=== PATIENT | female | born 1955 ===

== ENCOUNTER 2017-10-15 16:01 | Inpatient (IN) | payer MEDICAID ==
[2017-10-15] MEDS ORDERED: Albuterol-Ipratrop 3 mg / 0.5 (3 ml) UD INH STA (16:42)
[2017-10-15] MEDS ORDERED: Sodium Chloride 0.9% 1,000 ML IV STA (16:43)
[2017-10-15] MEDS ORDERED: Acetaminophen 325 MG/10.15 ML ONE (16:52)
--- NOTE | 2017-10-15 16:55 | ED PDOC ---
Syncope/Near Syncope/Dizziness Chief Complaint (Provider): Dizziness/lightheaded/headach and bodyaches History Per: Patient History/Exam Limitations: no limitations Onset/Duration Of Symptoms: Days Current Symptoms Are (Timing): Still Present Activity At Onset Of Symptoms: Change In Head Position Associated Symptoms Preceding Syncopal Episode: Lightheadedness, Vertigo Seizure Or Post-ictal Symptoms: None Fall Associated With With Symptoms: No Additional Complaint(s): This is 62 y/o female, with PMH of HTN, DMII, HLD and asthma comes to the ED c/ o 4 days history of constant dizziness, frontal headache, neck pain and body aches. As per patient, she has been having this kind of dizziness, headaches and room spinning episodes since one year, but it got constant since last 4 days with cough, congestion and body aches. Dizziness gets worse with standing, headachea and neck pain mild to moderate in nature and gets better with tylenol PRN. Patient reports nausea, chills and 1 episode of NBNB vomiting this morning. patient admits palpitations, but denies chest pain, dyspnea, tingling, numbness, abdominal pain or any urinary symptoms. PMD: Dr. Demetri Canas, [facility] PMH: HTN, DMII, HLD and asthma PSH: Breast reduction and 2x c-sections Allg: NKDA Meds: Insulin, Glimepride, lisinopril, Amlodipin, Metoprolol, Gabapentin Hospitalizations: Denies FH: Unknown SH: Denies any alcohol, smoking or illicit drug use - Risk Factors TAD Risk Factors: Pos: Hypertension <Yue Garay - Last Filed: 10/15/17 17:20> <Conrad Bradley - Last Filed: 10/15/17 19:11> Time Seen by Provider: 10/15/17 16:18 Chief Complaint (Nursing): Dizziness/Lightheaded Supervising Attending Note - Supervising Attending Note The Documented history was done by the: Physician Automotive Warranty Administrator The documented physical exam was done by the: Physician Automotive Warranty Administrator The documented procedures were done by the: Physician Automotive Warranty Administrator - Notes: Notes:: Dizziness; cough, congestion, runny nose, body aches <Conrad Bradley - Last Filed: 10/15/17 19:11> Past Medical History Vital Signs: Last Vital Signs Temp 98.7 F 10/15/17 16:10 Pulse 117 H 10/15/17 16:10 Resp 16 10/15/17 16:10 BP 104/59 L 10/15/17 16:10 Pulse Ox 97 10/15/17 16:10 - Medical History Other PMH: HTN, DMII, HLD and asthma - Surgical History Surgical History: - Family History Family History: States: No Known Family Hx - Living Arrangements Living Arrangements: With Family - Social History Current smoker - smoking cessation education provided: No Ex-Smoker (has not smoked in the last 12 months): No Alcohol: None Drugs: Denies <Yue Garay - Last Filed: 10/15/17 17:20> Vital Signs: Last Vital Signs Temp 98.7 F 10/15/17 16:10 Pulse 117 H 10/15/17 16:10 Resp 16 10/15/17 16:10 BP 104/59 L 10/15/17 16:10 Pulse Ox 97 10/15/17 17:20 <Conrad Bradley - Last Filed: 10/15/17 19:11> - Allergies Allergies/Adverse Reactions: Allergies Allergy/AdvReac Type Severity Reaction Status Date / Time No Known Allergies Allergy Verified 10/15/17 16:10 Review of Systems Constitutional: Positive for: Chills. Negative for: Fever, Weakness Eyes: Negative for: Pain, Vision Change, Conjunctivae Inflammation ENT: Positive for: Other (mild Neck pain and headache). Negative for: Ear Pain , Ear Discharge Cardiovascular: Positive for: Palpitations. Negative for: Chest Pain, Orthopnea , Paroxysmal Noc. Dyspnea Respiratory: Positive for: Cough. Negative for: Shortness of Breath, Hemoptysis , Pleuritic Pain Gastrointestinal: Positive for: Nausea, Vomiting. Negative for: Abdominal Pain , Diarrhea Genitourinary Female: Negative for: Dysuria, Frequency, Incontinence Musculoskeletal: Positive for: Neck Pain, Shoulder Pain Neurological: Positive for: Headache. Negative for: Weakness, Numbness, Incoordination, Change in Speech, Altered Mental Status <Yue Garay - Last Filed: 10/15/17 17:20> Physical Exam - Physical Exam Appears: Positive for: No Acute Distress Head Exam: Positive for: ATRAUMATIC, NORMAL INSPECTION, NORMOCEPHALIC Neck: Positive for: Pain On Movement Of Neck (mild with body aches and headache) Cardiovascular/Chest: Positive for: Regular Rate, Rhythm, Chest Non Tender, Tachycardia. Negative for: Edema, JVD Respiratory: Positive for: Crackles. Negative for: Decreased Breath Sounds, Respiratory Distress Gastrointestinal/Abdominal: Positive for: Normal Exam, Bowel Sounds, Soft. Negative for: Tenderness Back: Positive for: Normal Inspection Extremity: Positive for: Normal ROM. Negative for: Pedal Edema Neurologic/Psych: Positive for: Alert, pin inserter regulator II-XII, Oriented. Negative for: Motor/Sensory Deficits, Facial Droop <Yue Garay - Last Filed: 10/15/17 17:20> - Physical Exam Cardiovascular/Chest: Negative for: Edema Respiratory: Positive for: Normal Breath Sounds. Negative for: Wheezing <Conrad Bradley - Last Filed: 10/15/17 19:11> - ECG O2 Sat by Pulse Oximetry: 97 <Yue Garay - Last Filed: 10/15/17 17:20> - Laboratory Results Result Diagrams: 10/15/17 17:20 10/15/17 17:20 Interpretation Of Abn Labs: 44/2.8 - ECG ECG: Positive for: Interpreted By Me, Viewed By Me ECG Rhythm: Positive for: Sinus Tachycardia (mild) Pulse Ox Interpretation: Normal - Radiology X-Ray: Read By Radiologist X-Ray Interpretation: No Acute Disease - CT Scan/US head Other Rad Studies (CT/US): Read By Radiologist Other Rad Interpretation: no acute - Progress ED Course And Treament: 1900: Stable. AAOx3. Feels weakness all over and dizziness still off and on. Will give antivert. Will need admit as kidney function elevated levels. 1909: Stable. Spoke with Dr. Knapp. Will admit tele. <Conrad Bradley - Last Filed: 10/15/17 19:11> Medical Decision Making Medical Decision Making: A/P: 62 y/o female with dizziness, headache, cough and congestion - EKG - Head CT - Pro BNP, Troponin - CBC, CMP, PT, PTT - Influenza A/B - CXR - Albuterol, Reglan, tylenol, IVF <Yue Garay - Last Filed: 10/15/17 17:20> Disposition <Yue Garay - Last Filed: 10/15/17 17:20> - Patient ED Disposition Is Patient to be Admitted: Yes Counseled Patient/Family Regarding: Studies Performed, Diagnosis - Disposition Disposition Time: 19:10 - Pt Status Changed To: Hospital Disposition Of: Observation - POA Present On Arrival: None <Conrad Bradley - Last Filed: 10/15/17 19:11> - Clinical Impression Clinical Impression: Dizziness, Renal insufficiency - Disposition Condition: FAIR
--- NOTE | 2017-10-15 17:36 | RAD ---
HISTORY: Dyspnea. COMPARISON: 04/29/2011 FINDINGS: LUNGS: No active pulmonary disease. PLEURA: No significant pleural effusion identified, no pneumothorax apparent. CARDIOVASCULAR: No radiographic findings to suggest acute or significant cardiovascular disease. OSSEOUS STRUCTURES: No significant abnormalities. VISUALIZED UPPER ABDOMEN: Normal. OTHER FINDINGS: None. IMPRESSION: No active disease. No significant interval change compared to the prior examination(s).
[2017-10-15 17:42] LABS: BASO # 0.1 K/uL (0.0-0.2); BASO % 0.9 % (0.0-2.0); EOS # 0.1 K/uL (0.0-0.7); EOS % 0.8 % (0.0-4.0); HEMOGLOBIN 11.6 g/dL (12.0-16.0); LYMPH # 1.4 K/uL (1.0-4.3); LYMPH % 12.4 % (20.0-40.0); MEAN CELL VOLUME 82.5 fl (81.0-99.0); MEAN CORPUSCULAR HEMOGLOBIN 26.2 pg (27.0-31.0); MEAN CORPUSCULAR HGB CONC 31.8 g/dL (33.0-37.0); MEAN PLATELET VOLUME 9.2 fl (7.2-11.7); MONO # 1.2 K/uL (0.0-0.8); MONO % 10.3 % (0.0-10.0); NEUT # 8.5 K/uL (1.8-7.0); NEUT % 75.6 % (50.0-75.0); RBC 4.42 Mil/uL (3.80-5.20); RED CELL DISTRIBUTION WIDTH 13.8 % (11.5-14.5); WHITE BLOOD COUNT 11.3 K/uL (4.8-10.8)
[2017-10-15 17:44] LABS: ALB/GLOB RATIO 1.3 (1.0-2.1); ALBUMIN 4.4 g/dL (3.5-5.0); ALT/SGPT 53 U/L (9-52); AST/SGOT 58 U/L (14-36); BLOOD UREA NITROGEN 44 mg/dl (7-17); CALCIUM 10.5 mg/dL (8.4-10.2); GFR AFRICAN-AMERICAN 21; GFR NON-AFRICAN AMERICAN 17; INR 1.3 (0.9-1.2); PARTIAL THROMBOPLASTIN TIME 29.8 Seconds (25.6-37.1); PROTHROMBIN TIME 14.1 Seconds (9.8-13.1)
[2017-10-15 18:00] LABS: B-TYPE NATRIURETIC PEPTIDE 193 pg/ml (0-900)
--- NOTE | 2017-10-15 18:00 | CT ---
PROCEDURE: CT HEAD WITHOUT CONTRAST. HISTORY: headache COMPARISON: None available. TECHNIQUE: Axial computed tomography images were obtained through the head/brain without intravenous contrast. Radiation dose: Total exam DLP = 953.63 mGy-cm. This CT exam was performed using one or more of the following dose reduction techniques: Automated exposure control, adjustment of the mA and/or kV according to patient size, and/or use of iterative reconstruction technique. FINDINGS: HEMORRHAGE: No intracranial hemorrhage. BRAIN: No mass effect or edema. The dewitt-white matter differentiation appears intact. Enlargement of the pituitary gland measuring approximately 13 mm. VENTRICLES: No hydrocephalus. CALVARIUM: Unremarkable. PARANASAL SINUSES: Unremarkable as visualized. No significant inflammatory changes. MASTOID AIR CELLS: Unremarkable as visualized. No inflammatory changes. OTHER FINDINGS: None. IMPRESSION: Pituitary gland appears enlarged approximately 13 mm. MRI utilizing pituitary protocol recommended for further evaluation.
[2017-10-15] MEDS ORDERED: Albuterol HFA 90 mcg/actuation (8 g) INH PRN (22:36)
[2017-10-15] MEDS: Insulin Regular 100 units/ml SC SCH (23:12)
[2017-10-16 05:28] LABS: HEMOGLOBIN 10.9 g/dL (12.0-16.0); MEAN CELL VOLUME 81.9 fl (81.0-99.0); MEAN CORPUSCULAR HEMOGLOBIN 26.4 pg (27.0-31.0); MEAN CORPUSCULAR HGB CONC 32.2 g/dL (33.0-37.0); RBC 4.14 Mil/uL (3.80-5.20); RED CELL DISTRIBUTION WIDTH 14.2 % (11.5-14.5); WHITE BLOOD COUNT 10.1 K/uL (4.8-10.8)
[2017-10-16] MEDS ORDERED: Pneumococcal 23-Valent Vaccine IM ONE (06:00)
[2017-10-16 06:02] LABS: ALB/GLOB RATIO 1.2 (1.0-2.1); ALBUMIN 3.9 g/dL (3.5-5.0)
[2017-10-16 06:18] LABS: T4 5.86 ug/dl (5.5-11.0)
[2017-10-16 06:33] LABS: T3 0.661 nmol/L (1.49-2.60)
[2017-10-16] MEDS: Insulin Regular 100 units/ml SC SCH ×4 (08:00→22:03)
[2017-10-16] MEDS: Insulin Detemir 100 Units/ml Inj SC SCH (09:40)
[2017-10-16] MEDS: Enoxaparin 30 mg Syringe SC SCH (10:00)
--- NOTE | 2017-10-16 10:40 | CP.PCM.CON ---
History of Present Illness - History of Present Illness History of Present Illness: I was asked to see patient by Dr Knapp. Patient is a 62 year old female with PMH HTN, DM who is known to me from the office practice. patient has had previous cardiac work up including echocardiogram and stress test which have been negative for cardiac pathology. Patient has noted dizziness and lightheadedness which was worse yesterday. She presented for near syncopal event. Review of Systems - Constitutional Constitutional: absent: As Per HPI, Anorexia, Chills, Daytime Sleepiness, Excessive Sweating, Fatigue, Fever, Frequent Falls, Headache, Increased Appetite , Lethargy, Malaise, Night Sweats, Snoring, Sleep Apnea, Weight Gain, Weight Loss, Weakness, Other - EENT Eyes: absent: As Per HPI, Blind Spots, Blurred Vision, Change in Vision, Decreased Night Vision, Diplopia, Discharge, Dry Eye, Exophthalmos, Floaters, Irritation, Itchy Eyes, Loss of Peripheral Vision, Pain, Photophobia, Requires Corrective Lenses, Sees Flashes, Spots in Vision, Tunnel Vision, Other Visual Disturbances, Loss of Vision, Other Ears: absent: As Per HPI, Decreased Hearing, Ear Discharge, Ear Pain, Tinnitus, Abnormal Hearing, Disequilibrium, Dizziness, Other Nose/Mouth/Throat: absent: As Per HPI, Epistaxis, Nasal Congestion, Nasal Discharge, Nasal Obstruction, Nasal Trauma, Nose Pain, Post Nasal Drip, Sinus Pain, Sinus Pressure, Bleeding Gums, Change in Voice, Dental Pain, Dry Mouth, Dysphagia, Halitosis, Hoarsness, Lip Swelling, Mouth Lesions, Mouth Pain, Odynophagia, Sore Throat, Throat Swelling, Tongue Swelling, Facial Pain, Neck Pain, Neck Mass, Other - Cardiovascular Cardiovascular: absent: As Per HPI, Acrocyanosis, Chest Pain, Chest Pain at Rest , Chest Pain with Activity, Claudication, Diaphoresis, Dyspnea, Dyspnea on Exertion, Edema, Irregular Heart Rhythm, Pain Radiating to Arm/Neck/Jaw, Leg Edema, Leg Ulcers, Lightheadedness, Orthopnea, Palpitations, Paroxysmal Nocturnal Dyspnea, Pedal Edema, Radiating Pain, Rapid Heart Rate, Slow Heart Rate, Syncope, Other - Respiratory Respiratory: absent: As Per HPI, Cough, Dyspnea, Hemoptysis, Dyspnea on Exertion , Wheezing, Snoring, Stridor, Pain on Inspiration, Chest Congestion, Excessive Mucous Production, Change in Mucous Color, Pain with Coughing, Other - Gastrointestinal Gastrointestinal: absent: As Per HPI, Abdominal Pain, Belching, Bloating, Change in Bowel Habits, Change in Stool Character, Coffee Ground Emesis, Constipation, Cramping, Diarrhea, Dyspepsia, Dysphagia, Early Satiety, Excessive Flatus, Fecal Incontinence, Heartburn, Hematemesis, Hematochezia, Loose Stools, Melena, Nausea, Odynophagia, Temesmus, Vomiting, Other - Genitourinary Genitourinary: absent: As Per HPI, Change in Urinary Stream, Difficulty Urinating, Dysuria, Flank Pain, Hematuria, Pyuria, Nocturia, Urinary Incontinence, Urinary Frequency, Urinary Hesitance, Urinary Urgency, Voiding Freq/Small Amts, Freq UTI, Hx Renal/Bladder Calculi, Hx /Renal Surgery, Bladder Distension, Other - Musculoskeletal Musculoskeletal: absent: As Per HPI, Abnormal Gait, Arthralgias, Atrophy, Back Pain, Deformity, Joint Swelling, Limited Range of Motion, Loss of Height, Muscle Cramps, Muscle Weakness, Myalgias, Neck Pain, Numbness, Radiating Pain into Limb, Stiffness, Tingling, Other - Integumentary Integumentary: absent: As Per HPI, Acne, Alopecia, Bleeding Lesions, Change in Hair, Change in Nails, Change in Pigmentation, Changing Lesions, Dry Skin, Erythema, Furuncle, Hirsutism, Lesions, New Lesions, Non-Healing Lesions, Photosensitivity, Pruritus, Rash, Skin Pain, Skin Ulcer, Sores, Striae, Swelling , Unusual Bruising, Wounds, Jaundice, Other - Neurological Neurological: absent: As Per HPI, Abnormal Gait, Abnormal Hearing, Abnormal Movements, Abnormal Speech, Behavioral Changes, Burning Sensations, Confusion, Convulsions, Disequilibrium, Dizziness, Numbness, Focal Weakness, Frequent Falls , Headaches, Lack of Coordination, Loss of Vision, Memory Loss, Paresthesias, Radicular Pain, Restless Legs, Sensory Deficit, Syncope, Tingling, Tremor, Vertigo, Weakness, Other Visual Disturbances, Other - Psychiatric Psychiatric: absent: As Per HPI, Abnormal Sleep Pattern, Anhedonia, Anxiety, Auditory Hallucinations, Behavioral Changes, Change in Appetite, Change in Libido, Confusion, Depression, Difficulty Concentrating, Hallucinations, Homicidal Ideation, Hopelessness, Irritability, Memory Loss, Mood Swings, Panic Attacks, Paranoia, Suicidal Ideation, Visual Hallucinations, Tactile Hallucinations, Other - Endocrine Endocrine: absent: As Per HPI, Change in Body Appearance, Change in Libido, Cold Intolorance, Deepening of Voice, Excessive Sweating, Fatigue, Flushing, Heat Intolorance, Increase in Ring/Shoe/Hat Size, Palpitations, Polydipsia, Polyphagia, Polyuria, Other - Hematologic/Lymphatic Hematologic: absent: As Per HPI, Easy Bleeding, Easy Bruising, Lymphadenopathy, Other Past Patient History - Past Medical History & Family History Past Medical History?: Yes - Past Social History Smoking Status: Never Smoked - CARDIAC Hx Cardiac Disorders: Yes Hx Hypercholesterolemia: Yes Hx Hypertension: Yes - PULMONARY Hx Asthma: Yes - ENDOCRINE/METABOLIC Hx Diabetes Mellitus Type 2: Yes - MUSCULOSKELETAL/RHEUMATOLOGICAL Hx Falls: Yes - PSYCHIATRIC Hx Substance Use: No - SURGICAL HISTORY Hx Section: Yes Other/Comment: breast reduction - ANESTHESIA Hx Anesthesia: Yes Hx Anesthesia Reactions: No Meds Allergies/Adverse Reactions: Allergies Allergy/AdvReac Type Severity Reaction Status Date / Time No Known Allergies Allergy Verified 10/15/17 16:10 - Medications Medications: Current Medications Albuterol (Ventolin Hfa 90 Mcg/Actuation (8 G)) 2 puff INH Q6 PRN PRN Reason: Shortness of Breath Amlodipine Besylate (Norvasc) 5 mg PO DAILY [facility] Last Admin: 10/16/17 09:42 Dose: 5 mg Aspirin (Aspirin Chewable) 81 mg PO DAILY [facility] Last Admin: 10/16/17 09:39 Dose: 81 mg Atorvastatin Calcium (Lipitor) 40 mg PO DAILY [facility] Last Admin: 10/16/17 09:41 Dose: 40 mg Clotrimazole (Lotrimin 1% Cream) 1 applic TOP BID [facility] Last Admin: 10/16/17 09:42 Dose: 1 applic Enoxaparin Sodium (Lovenox) 30 mg SC DAILY [facility] PRN Reason: Protocol Fenofibrate (Tricor) 48 mg PO HS [facility] Fluticasone Propionate (Flonase) 2 spr JULISSA DAILY [facility] Last Admin: 10/16/17 09:39 Dose: 2 spr Gabapentin (Neurontin) 300 mg PO TID [facility] Last Admin: 10/16/17 09:42 Dose: 300 mg Hydrochlorothiazide (Hydrodiuril) 25 mg PO DAILY [facility] Last Admin: 10/16/17 09:40 Dose: 25 mg Insulin Detemir (Levemir) 25 units SC DAILY [facility] Last Admin: 10/16/17 09:40 Dose: 25 unit Insulin Human Regular (Humulin R) 0 units SC ACCU-CHECK [facility] PRN Reason: Protocol Last Admin: 10/16/17 08:00 Dose: Not Given Lisinopril (Zestril) 20 mg PO DAILY [facility] Loratadine (Claritin) 10 mg PO DAILY [facility] Last Admin: 10/16/17 09:39 Dose: 10 mg Metoprolol Tartrate (Lopressor) 100 mg PO BID [facility] Last Admin: 10/16/17 09:41 Dose: 100 mg Physical Exam - Constitutional Appears: Non-toxic - Head Exam Head Exam: NORMAL INSPECTION - Eye Exam Eye Exam: Normal appearance - ENT Exam ENT Exam: Mucous Membranes Moist - Neck Exam Neck exam: Positive for: Full Rom - Respiratory Exam Respiratory Exam: NORMAL BREATHING PATTERN - Cardiovascular Exam Cardiovascular Exam: REGULAR RHYTHM - GI/Abdominal Exam GI & Abdominal Exam: Normal Bowel Sounds - Rectal Exam Rectal Exam: Deferred - Extremities Exam Extremities exam: Negative for: pedal edema - Back Exam Back exam: NORMAL INSPECTION - Neurological Exam Neurological exam: Alert, Oriented x3 - Psychiatric Exam Psychiatric exam: Normal Affect - Skin Skin Exam: Normal Color Results - Vital Signs Recent Vital Signs: Last Vital Signs Temp 98.0 F 10/16/17 07:50 Pulse 87 10/16/17 09:42 Resp 20 10/16/17 07:50 BP 125/73 10/16/17 09:42 Pulse Ox 95 10/16/17 07:50 - Labs Result Diagrams: 10/16/17 05:00 10/16/17 05:00 Labs: Laboratory Results - last 24 hr 10/15/17 10/15/17 10/15/17 16:38 17:20 17:20 WBC 11.3 H RBC 4.42 Hgb 11.6 L Hct 36.5 MCV 82.5 MCH 26.2 L MCHC 31.8 L RDW 13.8 Plt Count 341 MPV 9.2 Neut % (Auto) 75.6 H Lymph % (Auto) 12.4 L [place] % (Auto) 10.3 H Eos % (Auto) 0.8 Baso % (Auto) 0.9 Neut # 8.5 H Lymph # 1.4 [place] # 1.2 H Eos # 0.1 Baso # 0.1 PT INR APTT Sodium 142 Potassium 4.0 Chloride 102 Carbon Dioxide 27 Anion Gap 17 BUN 44 H Creatinine 2.8 H Est GFR ( Amer) 21 Est GFR (Non-Af Amer) 17 POC Glucose (mg/dL) 147 H Random Glucose 133 H Calcium 10.5 H Total Bilirubin 1.2 AST 58 H ALT 53 H Alkaline Phosphatase 66 Troponin I < 0.0120 NT-Pro-B Natriuret Pep 193 Total Protein 7.9 Albumin 4.4 Globulin 3.5 Albumin/Globulin Ratio 1.3 Triglycerides Cholesterol LDL Cholesterol Direct HDL Cholesterol Vitamin B12 Thyroxine (T4) Total T3 TSH 3rd Generation Influenza Typ A,B (EIA) 10/15/17 10/15/17 10/15/17 17:20 17:20 22:25 WBC RBC Hgb Hct MCV MCH MCHC RDW Plt Count MPV Neut % (Auto) Lymph % (Auto) [place] % (Auto) Eos % (Auto) Baso % (Auto) Neut # Lymph # [place] # Eos # Baso # PT 14.1 H INR 1.3 H APTT 29.8 Sodium Potassium Chloride Carbon Dioxide Anion Gap BUN Creatinine Est GFR ( Amer) Est GFR (Non-Af Amer) POC Glucose (mg/dL) 119 H Random Glucose Calcium Total Bilirubin AST ALT Alkaline Phosphatase Troponin I NT-Pro-B Natriuret Pep Total Protein Albumin Globulin Albumin/Globulin Ratio Triglycerides Cholesterol LDL Cholesterol Direct HDL Cholesterol Vitamin B12 Thyroxine (T4) Total T3 TSH 3rd Generation Influenza Typ A,B (EIA) Negative for flu a/b 10/16/17 10/16/17 10/16/17 05:00 05:00 05:32 WBC 10.1 RBC 4.14 Hgb 10.9 L Hct 33.9 L MCV 81.9 MCH 26.4 L MCHC 32.2 L RDW 14.2 Plt Count 301 MPV Neut % (Auto) Lymph % (Auto) [place] % (Auto) Eos % (Auto) Baso % (Auto) Neut # Lymph # [place] # Eos # Baso # PT INR APTT Sodium 142 Potassium 3.5 L Chloride 104 Carbon Dioxide 26 Anion Gap 16 BUN 42 H Creatinine 2.8 H Est GFR ( Amer) 21 Est GFR (Non-Af Amer) 17 POC Glucose (mg/dL) 68 Random Glucose 67 Calcium 10.0 Total Bilirubin 0.9 AST 53 H ALT 56 H Alkaline Phosphatase 61 Troponin I NT-Pro-B Natriuret Pep Total Protein 7.2 Albumin 3.9 Globulin 3.3 Albumin/Globulin Ratio 1.2 Triglycerides 150 H Cholesterol 139 LDL Cholesterol Direct 69 HDL Cholesterol 30 Vitamin B12 360 Thyroxine (T4) 5.86 Total T3 0.661 L TSH 3rd Generation 1.47 Influenza Typ A,B (EIA) 10/16/17 05:57 WBC RBC Hgb Hct MCV MCH MCHC RDW Plt Count MPV Neut % (Auto) Lymph % (Auto) [place] % (Auto) Eos % (Auto) Baso % (Auto) Neut # Lymph # [place] # Eos # Baso # PT INR APTT Sodium Potassium Chloride Carbon Dioxide Anion Gap BUN Creatinine Est GFR ( Amer) Est GFR (Non-Af Amer) POC Glucose (mg/dL) 99 Random Glucose Calcium Total Bilirubin AST ALT Alkaline Phosphatase Troponin I NT-Pro-B Natriuret Pep Total Protein Albumin Globulin Albumin/Globulin Ratio Triglycerides Cholesterol LDL Cholesterol Direct HDL Cholesterol Vitamin B12 Thyroxine (T4) Total T3 TSH 3rd Generation Influenza Typ A,B (EIA) - EKG Data EKG Interpreted by: Myself Assessment & Plan (1) Near syncope Assessment and Plan: cristy noncardiac cause of syncope. Patient has no events on telemetry. neuro work up in progress. stable cardiac status. Status: Acute (2) HTN (hypertension) Assessment and Plan: monitor blood pressure Status: Acute (3) Diabetes mellitus Assessment and Plan: follow blood sugar Status: Acute
--- NOTE | 2017-10-16 10:40 | CARD ---
APPROVED REPORT EKG Measurement Heart [id number] ID [id number] <Conclusion> Sinus tachycardia Otherwise normal ECG
--- NOTE | 2017-10-16 12:32 | CP.PCM.HP ---
<Jazz Rodriguez - Last Filed: 10/16/17 15:25> History of Present Illness - History of Present Illness History of Present Illness: 62 yr old F presented to ED with complaint of worsening dizziness and 1 episode of non-bilious vomiting. PMHx includes HTN, IDDM type 2 (dx at age 56), Chronic Kidney Disease stage 4 and moderate-severe seasonal allergies. Patient reports she has been experiencing intermittent episodes of dizziness for 1 yr. Yesterday her dizziness became severe, she denies syncope, experienced nausea and 1 episode of vomiting which she describes as "thick yellow saliva", she could not tolerate anything by mouth yesterday. Her dizziness is worsened by getting up fast from laying in supine position or standing up fast when she is sitting down. Nothing alleviates her dizziness. She has associated symptom of body aches. Denies chest pain, SOB, weakness, swelling of extremities, syncope, changes in vision or blood in urine or stool. Designated emergency contact: daughter: Le Flores [phone], does not have advance directive PMD: Dr. Canas, [place] Specialists: Dr. Murcia- cardiology; see network support administrator yearly PMHx: HTN, IDDM type 2 (dx at age 56), Chronic Kidney Disease stage 4, moderate- severe seasonal allergies SurgHx; x 2; bilateral breast reduction () FMHx: mother had breast cancer and from an [place] at 82 rs old, father unknown, siblings healthy SocHx: denies tobacco, Etoh or drugs, live alone Medications: Albuterol HFA 2 spray INH Q6 PRN for SOB, Amlodipine 5 mg PO QD, Lisinopril/HCTZ 25mg-20mg PO QD, Metoprolol Tartrate 100mg PO BID, ASA 81 mg PO QD, Atorvastatin 40 mg PO QHS, Fenofibrate 54mg PO QHS, Fluticasone propionate 50mcg -2 sprays each nostril QD, Claritin 10 mg PO QD, Gabapentin 300mg PO TID, Glimepiride 2mg PO BID, Insulin Glargine 25 units SC QD Present on Admission - Present on Admission Any Indicators Present on Admission: No History of DVT/PE: No History of Uncontrolled Diabetes: No Urinary Catheter: No Decubitus Ulcer Present: No Review of Systems - Review of Systems All systems: reviewed and no additional remarkable complaints except (except for what is mentioned in the HPI) - Constitutional Constitutional: absent: Chills, Weakness - EENT Eyes: absent: Blurred Vision, Change in Vision Ears: Disequilibrium, Dizziness Nose/Mouth/Throat: absent: Nasal Congestion, Nasal Discharge - Cardiovascular Cardiovascular: absent: Chest Pain, Dyspnea - Respiratory Respiratory: absent: Cough, Hemoptysis - Gastrointestinal Gastrointestinal: Nausea, Vomiting. absent: Abdominal Pain - Genitourinary Genitourinary: absent: Difficulty Urinating, Dysuria, Hematuria - Musculoskeletal Musculoskeletal: Myalgias. absent: Numbness - Integumentary Integumentary: absent: Rash - Neurological Neurological: absent: Convulsions - Endocrine Endocrine: absent: Polydipsia, Polyphagia, Polyuria - Hematologic/Lymphatic Hematologic: absent: Easy Bleeding, Easy Bruising Past Patient History - Past Medical History & Family History Past Medical History?: Yes - Past Social History Smoking Status: Never Smoked - CARDIAC Hx Cardiac Disorders: Yes Hx Hypercholesterolemia: Yes Hx Hypertension: Yes - PULMONARY Hx Asthma: Yes - ENDOCRINE/METABOLIC Hx Diabetes Mellitus Type 2: Yes - MUSCULOSKELETAL/RHEUMATOLOGICAL Hx Falls: Yes - PSYCHIATRIC Hx Substance Use: No - SURGICAL HISTORY Hx Section: Yes Other/Comment: breast reduction - ANESTHESIA Hx Anesthesia: Yes Hx Anesthesia Reactions: No Meds Allergies/Adverse Reactions: Allergies Allergy/AdvReac Type Severity Reaction Status Date / Time No Known Allergies Allergy Verified 10/15/17 16:10 Physical Exam - Constitutional Appears: No Acute Distress - Head Exam Head Exam: ATRAUMATIC, NORMOCEPHALIC - Eye Exam Eye Exam: EOMI, PERRL - ENT Exam ENT Exam: Mucous Membranes Moist - Neck Exam Neck exam: Positive for: Full Rom. Negative for: Lymphadenopathy - Respiratory Exam Respiratory Exam: Clear to Auscultation Bilateral, NORMAL BREATHING PATTERN - Cardiovascular Exam Cardiovascular Exam: REGULAR RHYTHM, +S1, +S2 - GI/Abdominal Exam GI & Abdominal Exam: Normal Bowel Sounds, Soft (obese). absent: Tenderness - Extremities Exam Extremities exam: Positive for: full ROM, pedal pulses present. Negative for: pedal edema - Neurological Exam Neurological exam: Alert, CN II-XII Intact, Oriented x3 Additional comments: patient dizzy at rest, worsened when attempted [place]-Hallpike maneuver - Psychiatric Exam Psychiatric exam: Normal Affect, Normal Mood - Skin Skin Exam: Dry, Intact, Warm Results - Vital Signs Recent Vital Signs: Last Vital Signs Temp 98.5 F 10/16/17 11:59 Pulse 71 10/16/17 11:59 Resp 18 10/16/17 11:59 BP 97/60 L 10/16/17 11:59 Pulse Ox 96 10/16/17 11:59 - Labs Result Diagrams: 10/16/17 05:00 10/16/17 05:00 Labs: Laboratory Results - last 24 hr 10/15/17 10/15/17 10/15/17 16:38 17:20 17:20 WBC 11.3 H RBC 4.42 Hgb 11.6 L Hct 36.5 MCV 82.5 MCH 26.2 L MCHC 31.8 L RDW 13.8 Plt Count 341 MPV 9.2 Neut % (Auto) 75.6 H Lymph % (Auto) 12.4 L [place] % (Auto) 10.3 H Eos % (Auto) 0.8 Baso % (Auto) 0.9 Neut # 8.5 H Lymph # 1.4 [place] # 1.2 H Eos # 0.1 Baso # 0.1 PT INR APTT Sodium 142 Potassium 4.0 Chloride 102 Carbon Dioxide 27 Anion Gap 17 BUN 44 H Creatinine 2.8 H Est GFR ( Amer) 21 Est GFR (Non-Af Amer) 17 POC Glucose (mg/dL) 147 H Random Glucose 133 H Calcium 10.5 H Total Bilirubin 1.2 AST 58 H ALT 53 H Alkaline Phosphatase 66 Troponin I < 0.0120 NT-Pro-B Natriuret Pep 193 Total Protein 7.9 Albumin 4.4 Globulin 3.5 Albumin/Globulin Ratio 1.3 Triglycerides Cholesterol LDL Cholesterol Direct HDL Cholesterol Vitamin B12 Thyroxine (T4) Total T3 TSH 3rd Generation Influenza Typ A,B (EIA) 10/15/17 10/15/17 10/15/17 17:20 17:20 22:25 WBC RBC Hgb Hct MCV MCH MCHC RDW Plt Count MPV Neut % (Auto) Lymph % (Auto) [place] % (Auto) Eos % (Auto) Baso % (Auto) Neut # Lymph # [place] # Eos # Baso # PT 14.1 H INR 1.3 H APTT 29.8 Sodium Potassium Chloride Carbon Dioxide Anion Gap BUN Creatinine Est GFR ( Amer) Est GFR (Non-Af Amer) POC Glucose (mg/dL) 119 H Random Glucose Calcium Total Bilirubin AST ALT Alkaline Phosphatase Troponin I NT-Pro-B Natriuret Pep Total Protein Albumin Globulin Albumin/Globulin Ratio Triglycerides Cholesterol LDL Cholesterol Direct HDL Cholesterol Vitamin B12 Thyroxine (T4) Total T3 TSH 3rd Generation Influenza Typ A,B (EIA) Negative for flu a/b 10/16/17 10/16/17 10/16/17 05:00 05:00 05:32 WBC 10.1 RBC 4.14 Hgb 10.9 L Hct 33.9 L MCV 81.9 MCH 26.4 L MCHC 32.2 L RDW 14.2 Plt Count 301 MPV Neut % (Auto) Lymph % (Auto) [place] % (Auto) Eos % (Auto) Baso % (Auto) Neut # Lymph # [place] # Eos # Baso # PT INR APTT Sodium 142 Potassium 3.5 L Chloride 104 Carbon Dioxide 26 Anion Gap 16 BUN 42 H Creatinine 2.8 H Est GFR ( Amer) 21 Est GFR (Non-Af Amer) 17 POC Glucose (mg/dL) 68 Random Glucose 67 Calcium 10.0 Total Bilirubin 0.9 AST 53 H ALT 56 H Alkaline Phosphatase 61 Troponin I NT-Pro-B Natriuret Pep Total Protein 7.2 Albumin 3.9 Globulin 3.3 Albumin/Globulin Ratio 1.2 Triglycerides 150 H Cholesterol 139 LDL Cholesterol Direct 69 HDL Cholesterol 30 Vitamin B12 360 Thyroxine (T4) 5.86 Total T3 0.661 L TSH 3rd Generation 1.47 Influenza Typ A,B (EIA) 10/16/17 10/16/17 05:57 10:45 WBC RBC Hgb Hct MCV MCH MCHC RDW Plt Count MPV Neut % (Auto) Lymph % (Auto) [place] % (Auto) Eos % (Auto) Baso % (Auto) Neut # Lymph # [place] # Eos # Baso # PT INR APTT Sodium Potassium Chloride Carbon Dioxide Anion Gap BUN Creatinine Est GFR ( Amer) Est GFR (Non-Af Amer) POC Glucose (mg/dL) 99 138 H Random Glucose Calcium Total Bilirubin AST ALT Alkaline Phosphatase Troponin I NT-Pro-B Natriuret Pep Total Protein Albumin Globulin Albumin/Globulin Ratio Triglycerides Cholesterol LDL Cholesterol Direct HDL Cholesterol Vitamin B12 Thyroxine (T4) Total T3 TSH 3rd Generation Influenza Typ A,B (EIA) Assessment & Plan - Assessment and Plan (Free Text) Assessment: 62 yr old F admitted for worsening dizziness and 1 episode of non-bilious vomiting. PMHx includes HTN, IDDM type 2 (dx at age 56), Chronic Kidney Disease stage 4 and moderate-severe seasonal allergies. Patient seen and examined at bedside with attending-Dr. Knapp, telemetry reviewed. 1. Dizziness -chronic, intermittent/recurrent, likely secondary to vertigo vs dehydration vs cardiac -CT head: enlarged pituitary 13mm, no brain mass effect or edema -troponin negative, proBNP wnl, B12/TSH/FT4 wnl, influenza A/B negative -admit to telemetry -Neurology consult appreciated: NS IVF 75mL/hr, MRI Brain, MRA head and neck: r/ o posterior circulation stroke or vertebral basilar insufficiency -Cardiology consult appreciated: stable cardiac [place] -f/u MRI, MRA as recommended by neuro 2. IDDM type 2 -chronic, controlled -f/u HbA1c -lipid panel: cholesterol 139, triglycerides 150, LDL 69, HDL 30 -continue with home medications: Glimepiride 2mg PO BID, Insulin Glargine 25 units SC QD, Atorvastatin 40 mg PO QHS, Gabapentin 300mg PO TID, Fenofibrate 54mg PO QHS -hypoglycemia protocol in place 3. Hypertension -chronic, controlled -continue with home medications: Amlodipine 5 mg PO QD, Lisinopril/HCTZ 20mg- 25mg PO QD, Metoprolol Tartrate 100mg PO BID, ASA 81 mg PO QD -monitor BP 4. Chronic Kidney Disease stage 4 -chronic, stable, unknown etiology -Nephrology consult appreciated -avoid nephrotoxic drugs, renal dose mediation 5. Moderate-severe allergies -chronic, controlled -continue home medications: Fluticasone propionate 50mcg -2 sprays each nostril QD, Claritin 10 mg PO QD, Albuterol HFA 2 spray INH Q6 PRN for SOB 6. DVT prophylaxis -Lovenox 30 mg SC QD - Date & Time Date: 10/16/17 Time: 07:20 <Jewel Knapp - Last Filed: 10/21/17 12:41> Results - Vital Signs Recent Vital Signs: Last Vital Signs Temp 99.0 F 10/21/17 07:55 Pulse 71 10/21/17 09:17 Resp 18 10/21/17 07:55 BP 124/73 10/21/17 09:17 Pulse Ox 96 10/21/17 07:55 - Labs Result Diagrams: 10/20/17 04:25 10/20/17 04:25 Labs: Laboratory Results - last 24 hr 10/17/17 10/17/17 10/20/17 10:31 10:50 15:34 POC Glucose (mg/dL) 88 TSH 3rd Generation FSH 3rd Generation Luteinizing Hormone Human Growth Hormone 0.1 Prothrombin Mut Interp see note Prothrombin Gene Mutate see note Prothromb Gene Review see note 10/20/17 10/21/17 10/21/17 21:08 05:34 10:31 POC Glucose (mg/dL) 98 112 H 189 H TSH 3rd Generation FSH 3rd Generation Luteinizing Hormone Human Growth Hormone Prothrombin Mut Interp Prothrombin Gene Mutate Prothromb Gene Review 10/21/17 10:35 POC Glucose (mg/dL) TSH 3rd Generation 1.97 FSH 3rd Generation 8.5 Luteinizing Hormone 1.2 Human Growth Hormone Prothrombin Mut Interp Prothrombin Gene Mutate Prothromb Gene Review Assessment & Plan - Assessment and Plan (Free Text) Assessment: Patient was personally seen and examined by me in rounds with residents. Available labs and diagnostic data reviewed. Case, Patient's condition and management plan discussed with residents in rounds. Agree with resident's progress note. Plan: As ordered.
--- NOTE | 2017-10-16 15:19 | CP.PCM.CON ---
History of Present Illness - History of Present Illness History of Present Illness: Mrs. Aguilar is a 62-year-old woman with a past medical history of HTN, DMII, HLD and asthma, who presented to the ED complaining of dizziness and nausea. She states that she feels that she is seeing double as well. Her dizziness is sometimes described as the room is spinning. When she stands up, she feels "wobbly" and feels like she is unable to walk normally. Review of Systems - Review of Systems All systems: reviewed and no additional remarkable complaints except Past Patient History - Past Medical History & Family History Past Medical History?: Yes - Past Social History Smoking Status: Never Smoked - CARDIAC Hx Cardiac Disorders: Yes Hx Hypercholesterolemia: Yes Hx Hypertension: Yes - PULMONARY Hx Asthma: Yes - ENDOCRINE/METABOLIC Hx Diabetes Mellitus Type 2: Yes - MUSCULOSKELETAL/RHEUMATOLOGICAL Hx Falls: Yes - PSYCHIATRIC Hx Substance Use: No - SURGICAL HISTORY Hx Section: Yes Other/Comment: breast reduction - ANESTHESIA Hx Anesthesia: Yes Hx Anesthesia Reactions: No Meds Allergies/Adverse Reactions: Allergies Allergy/AdvReac Type Severity Reaction Status Date / Time No Known Allergies Allergy Verified 10/15/17 16:10 - Medications Medications: Current Medications Albuterol (Ventolin Hfa 90 Mcg/Actuation (8 G)) 2 puff INH Q6 PRN PRN Reason: Shortness of Breath Amlodipine Besylate (Norvasc) 5 mg PO DAILY [facility] Last Admin: 10/16/17 09:42 Dose: 5 mg Aspirin (Aspirin Chewable) 81 mg PO DAILY [facility] Last Admin: 10/16/17 09:39 Dose: 81 mg Atorvastatin Calcium (Lipitor) 40 mg PO DAILY [facility] Last Admin: 10/16/17 09:41 Dose: 40 mg Clotrimazole (Lotrimin 1% Cream) 1 applic TOP BID [facility] Last Admin: 10/16/17 09:42 Dose: 1 applic Enoxaparin Sodium (Lovenox) 30 mg SC DAILY [facility] PRN Reason: Protocol Last Admin: 10/16/17 10:00 Dose: 30 mg Fenofibrate (Tricor) 48 mg PO HS [facility] Fluticasone Propionate (Flonase) 2 spr JULISSA DAILY [facility] Last Admin: 10/16/17 09:39 Dose: 2 spr Gabapentin (Neurontin) 300 mg PO TID [facility] Last Admin: 10/16/17 12:34 Dose: 300 mg Hydrochlorothiazide (Hydrodiuril) 25 mg PO DAILY [facility] Last Admin: 10/16/17 09:40 Dose: 25 mg Sodium Chloride (Sodium Chloride 0.9%) 1,000 mls @ 75 mls/hr IV .[id number] [facility] Stop: 10/17/17 15:11 Insulin Detemir (Levemir) 25 units SC DAILY [facility] Last Admin: 10/16/17 09:40 Dose: 25 unit Insulin Human Regular (Humulin R) 0 units SC ACCU-CHECK [facility] PRN Reason: Protocol Last Admin: 10/16/17 12:29 Dose: Not Given Lisinopril (Zestril) 20 mg PO DAILY [facility] Last Admin: 10/16/17 09:39 Dose: 20 mg Loratadine (Claritin) 10 mg PO DAILY [facility] Last Admin: 10/16/17 09:39 Dose: 10 mg Metoprolol Tartrate (Lopressor) 100 mg PO BID [facility] Last Admin: 10/16/17 09:41 Dose: 100 mg Physical Exam - Constitutional Appears: Well - Head Exam Head Exam: ATRAUMATIC, NORMAL INSPECTION, NORMOCEPHALIC - Eye Exam Eye Exam: EOMI, Normal appearance, PERRL - ENT Exam ENT Exam: Mucous Membranes Moist, Normal Exam - Neck Exam Neck exam: Positive for: Normal Inspection - Respiratory Exam Respiratory Exam: Clear to Auscultation Bilateral, NORMAL BREATHING PATTERN - Cardiovascular Exam Cardiovascular Exam: REGULAR RHYTHM, +S1, +S2 - GI/Abdominal Exam GI & Abdominal Exam: Normal Bowel Sounds, Soft. absent: Tenderness - Neurological Exam Neurological exam: Abnormal Gait, Alert, CN II-XII Intact, Oriented x3, Reflexes Normal Additional comments: Nystagmus noted on right lateral gaze with fast beat to the right. Results - Vital Signs Recent Vital Signs: Last Vital Signs Temp 98.5 F 10/16/17 11:59 Pulse 71 10/16/17 11:59 Resp 18 10/16/17 11:59 BP 97/60 L 10/16/17 11:59 Pulse Ox 96 10/16/17 11:59 - Labs Result Diagrams: 10/16/17 05:00 10/16/17 05:00 Labs: Laboratory Results - last 24 hr 10/15/17 10/15/17 10/15/17 16:38 17:20 17:20 WBC 11.3 H RBC 4.42 Hgb 11.6 L Hct 36.5 MCV 82.5 MCH 26.2 L MCHC 31.8 L RDW 13.8 Plt Count 341 MPV 9.2 Neut % (Auto) 75.6 H Lymph % (Auto) 12.4 L [place] % (Auto) 10.3 H Eos % (Auto) 0.8 Baso % (Auto) 0.9 Neut # 8.5 H Lymph # 1.4 [place] # 1.2 H Eos # 0.1 Baso # 0.1 PT INR APTT Sodium 142 Potassium 4.0 Chloride 102 Carbon Dioxide 27 Anion Gap 17 BUN 44 H Creatinine 2.8 H Est GFR ( Amer) 21 Est GFR (Non-Af Amer) 17 POC Glucose (mg/dL) 147 H Random Glucose 133 H Calcium 10.5 H Total Bilirubin 1.2 AST 58 H ALT 53 H Alkaline Phosphatase 66 Troponin I < 0.0120 NT-Pro-B Natriuret Pep 193 Total Protein 7.9 Albumin 4.4 Globulin 3.5 Albumin/Globulin Ratio 1.3 Triglycerides Cholesterol LDL Cholesterol Direct HDL Cholesterol Vitamin B12 Thyroxine (T4) Total T3 TSH 3rd Generation Influenza Typ A,B (EIA) 10/15/17 10/15/17 10/15/17 17:20 17:20 22:25 WBC RBC Hgb Hct MCV MCH MCHC RDW Plt Count MPV Neut % (Auto) Lymph % (Auto) [place] % (Auto) Eos % (Auto) Baso % (Auto) Neut # Lymph # [place] # Eos # Baso # PT 14.1 H INR 1.3 H APTT 29.8 Sodium Potassium Chloride Carbon Dioxide Anion Gap BUN Creatinine Est GFR ( Amer) Est GFR (Non-Af Amer) POC Glucose (mg/dL) 119 H Random Glucose Calcium Total Bilirubin AST ALT Alkaline Phosphatase Troponin I NT-Pro-B Natriuret Pep Total Protein Albumin Globulin Albumin/Globulin Ratio Triglycerides Cholesterol LDL Cholesterol Direct HDL Cholesterol Vitamin B12 Thyroxine (T4) Total T3 TSH 3rd Generation Influenza Typ A,B (EIA) Negative for flu a/b 10/16/17 10/16/17 10/16/17 05:00 05:00 05:32 WBC 10.1 RBC 4.14 Hgb 10.9 L Hct 33.9 L MCV 81.9 MCH 26.4 L MCHC 32.2 L RDW 14.2 Plt Count 301 MPV Neut % (Auto) Lymph % (Auto) [place] % (Auto) Eos % (Auto) Baso % (Auto) Neut # Lymph # [place] # Eos # Baso # PT INR APTT Sodium 142 Potassium 3.5 L Chloride 104 Carbon Dioxide 26 Anion Gap 16 BUN 42 H Creatinine 2.8 H Est GFR ( Amer) 21 Est GFR (Non-Af Amer) 17 POC Glucose (mg/dL) 68 Random Glucose 67 Calcium 10.0 Total Bilirubin 0.9 AST 53 H ALT 56 H Alkaline Phosphatase 61 Troponin I NT-Pro-B Natriuret Pep Total Protein 7.2 Albumin 3.9 Globulin 3.3 Albumin/Globulin Ratio 1.2 Triglycerides 150 H Cholesterol 139 LDL Cholesterol Direct 69 HDL Cholesterol 30 Vitamin B12 360 Thyroxine (T4) 5.86 Total T3 0.661 L TSH 3rd Generation 1.47 Influenza Typ A,B (EIA) 10/16/17 10/16/17 05:57 10:45 WBC RBC Hgb Hct MCV MCH MCHC RDW Plt Count MPV Neut % (Auto) Lymph % (Auto) [place] % (Auto) Eos % (Auto) Baso % (Auto) Neut # Lymph # [place] # Eos # Baso # PT INR APTT Sodium Potassium Chloride Carbon Dioxide Anion Gap BUN Creatinine Est GFR ( Amer) Est GFR (Non-Af Amer) POC Glucose (mg/dL) 99 138 H Random Glucose Calcium Total Bilirubin AST ALT Alkaline Phosphatase Troponin I NT-Pro-B Natriuret Pep Total Protein Albumin Globulin Albumin/Globulin Ratio Triglycerides Cholesterol LDL Cholesterol Direct HDL Cholesterol Vitamin B12 Thyroxine (T4) Total T3 TSH 3rd Generation Influenza Typ A,B (EIA) Assessment & Plan (1) Vertigo Assessment and Plan: She states that she feels as though she may "pass out", but did not lose consciousness. She complains of spinning sensation and it appears to be worse with head and eye movement to the left. Likely benign positional vertigo; however, with the complaints of diplopia and gait instability, an MRI of the brain as well as MRA of the head/neck is warranted to rule out a posterior circulation stroke or vertebro-basilar insufficiency. Her renal failure, along with possible dehydration may be contributing. I recommend IVF with NS at 75 mL /hr. Continue aspirin, statin and follow up with nephrology and cardiology. Continue on telemetry. Status: Acute Priority: High
[2017-10-16] MEDS: Sodium Chloride 0.9% 1,000 ML IV SCH (15:27)
--- NOTE | 2017-10-16 17:56 | MRI ---
PROCEDURE: MR Angiography of the neck without contrast HISTORY: vertigo COMPARISON: None available. TECHNIQUE: 3D [id number] angiography of the neck was performed. Rotating maximum intensity projection images of the cervical carotid and vertebral arteries were generated. The origins of the common carotid arteries were not visualized, which is a limitation inherent to the non-contrast time of flight technique. FINDINGS: RIGHT CAROTID ARTERIES: Common Carotid Artery: Normal. Carotid Bifurcation: Normal. Internal Carotid Artery:Normal. External Carotid Artery (proximal branches): Normal. LEFT CAROTID ARTERIES: Common Carotid Artery: Normal. Carotid Bifurcation: Normal. Internal Carotid Artery:Normal. External Carotid Artery (proximal branches): Normal. VERTEBRAL ARTERIES: Right Vertebral Artery: Normal. The right vertebral artery is hypoplastic, an anatomic variant. Left Vertebral Artery: Normal. OTHER FINDINGS: None. IMPRESSION: Normal MR Angiography of the neck.
--- NOTE | 2017-10-16 18:10 | MRI ---
PROCEDURE: Magnetic Resonance Angiography Brain HISTORY: Vertigo COMPARISON: None available. TECHNIQUE: 3D time of flight MR angiography of the intracranial arteries was performed. Rotating maximum intensity projection images were generated. FINDINGS: INTERNAL CAROTID ARTERIES: Normal flow related signal signal. The skull base, petrous, cavernous and supraclinoid segments are bilaterally widely patient. ANTERIOR CEREBRAL ARTERIES: Normal flow related signal. A1 and A2 segments are widely patent. Smaller distal branches unremarkable, as visualized. MIDDLE CEREBRAL ARTERIES: Normal flow related signal. M1 and M2 segments are widely patent. Perisylvian branches grossly symmetric. POSTERIOR CIRCULATION: Basilar Artery: Normal in caliber atelectatic. Distal Vertebral Arteries: Normal. The left vertebral artery is dominant intracranial E, an anatomic variant. Posterior Cerebral Arteries: Normal. There is origin of bilateral posterior cerebral artery, an anatomic variant. Posterior Inferior Cerebellar Arteries: Normal. ANEURYSM/ VASCULAR MALFORMATIONS: None. OTHER FINDINGS: None. IMPRESSION: No evidence of occlusion, stenosis or saccular aneurysm.
--- NOTE | 2017-10-16 18:30 | MRI ---
PROCEDURE: MRI BRAIN WITHOUT CONTRAST HISTORY: Vertigo COMPARISON: Noncontrast head CT from 10/15/2017 TECHNIQUE: Multiplanar, multisequence MR images of the brain were obtained without intravenous contrast enhancement. FINDINGS: HEMORRHAGE: None DWI: No evidence of an acute or early subacute infarction. BRAIN PARENCHYMA: There is a 1.6 x 1.6 x 1.3 cm T2 hyperintense mass in the right side of sella turcica which also demonstrates mild restricted diffusion. There are mild chronic microangiopathic changes. There is no abnormal extra-axial fluid collection. VENTRICLES: There is mild age-related global parenchymal volume loss and proportionate enlargement of the ventricles and cortical sulci. CRANIUM: There is normal bone marrow signal pattern. ORBITS: Grossly unremarkable. PARANASAL SINUSES/MASTOIDS: Predominantly clear VASCULAR SYSTEM: There are normal signal voids in the larger intracranial arteries. OTHER FINDINGS: None. IMPRESSION: 1. Incompletely characterized is a 1.6 x 1.6 x 1.3 cm mass in the sella turcica on right. A dedicated MRI of the brain without and with intravenous contrast would is recommended for definitive evaluation. 2. Mild chronic microangiopathic changes and mild age-related global parenchymal
[2017-10-17] MEDS: Sodium Chloride 0.9% 1,000 ML IV SCH (05:34)
[2017-10-17] MEDS: Insulin Regular 100 units/ml SC SCH ×4 (06:57→23:00)
--- NOTE | 2017-10-17 07:48 | CP.PCM.PN ---
<Jazz Rodriguez - Last Filed: 10/17/17 09:41> Subjective - Date & Time of Evaluation Date of Evaluation: 10/17/17 Time of Evaluation: 07:30 - Subjective Subjective: Patient seen and examined at bedside with attending- Dr. Knapp, telemetry reviewed. Awake, alert, reports dizziness persists but had mild improvement. Denies chest pain, SOB or weakness. Tolerating PO diet and ambulating without difficulty. Objective - Vital Signs/Intake and Output Vital Signs (last 24 hours): Temp Pulse Resp BP Pulse Ox 98.5 F 82 19 125/73 98 10/17/17 05:00 10/17/17 05:00 10/17/17 05:00 10/17/17 05:00 10/17/17 05:00 - Medications Medications: Current Medications Albuterol (Ventolin Hfa 90 Mcg/Actuation (8 G)) 2 puff INH Q6 PRN PRN Reason: Shortness of Breath Amlodipine Besylate (Norvasc) 5 mg PO DAILY [facility] Last Admin: 10/16/17 09:42 Dose: 5 mg Aspirin (Aspirin Chewable) 81 mg PO DAILY [facility] Last Admin: 10/16/17 09:39 Dose: 81 mg Atorvastatin Calcium (Lipitor) 40 mg PO DAILY [facility] Last Admin: 10/16/17 09:41 Dose: 40 mg Clotrimazole (Lotrimin 1% Cream) 1 applic TOP BID [facility] Last Admin: 10/16/17 16:51 Dose: 1 applic Enoxaparin Sodium (Lovenox) 30 mg SC DAILY [facility] PRN Reason: Protocol Last Admin: 10/16/17 10:00 Dose: 30 mg Fenofibrate (Tricor) 48 mg PO HS [facility] Last Admin: 10/16/17 22:02 Dose: 48 mg Fluticasone Propionate (Flonase) 2 spr JULISSA DAILY [facility] Last Admin: 10/16/17 09:39 Dose: 2 spr Gabapentin (Neurontin) 300 mg PO TID [facility] Last Admin: 10/16/17 16:51 Dose: 300 mg Hydrochlorothiazide (Hydrodiuril) 25 mg PO DAILY [facility] Last Admin: 10/16/17 09:40 Dose: 25 mg Sodium Chloride (Sodium Chloride 0.9%) 1,000 mls @ 75 mls/hr IV .[id number] [facility] Stop: 10/17/17 15:11 Last Admin: 10/17/17 05:34 Dose: 75 mls/hr Insulin Detemir (Levemir) 25 units SC DAILY [facility] Last Admin: 10/16/17 09:40 Dose: 25 unit Insulin Human Regular (Humulin R) 0 units SC ACCU-CHECK [facility] PRN Reason: Protocol Last Admin: 10/17/17 06:57 Dose: Not Given Lisinopril (Zestril) 20 mg PO DAILY [facility] Last Admin: 10/16/17 09:39 Dose: 20 mg Loratadine (Claritin) 10 mg PO DAILY [facility] Last Admin: 10/16/17 09:39 Dose: 10 mg Metoprolol Tartrate (Lopressor) 100 mg PO BID [facility] Last Admin: 10/16/17 16:50 Dose: Not Given - Labs Labs: 10/16/17 05:00 10/16/17 05:00 PT 14.1 Seconds (9.8-13.1) H 10/15/17 17:20 INR 1.3 (0.9-1.2) H 10/15/17 17:20 APTT 29.8 Seconds (25.6-37.1) 10/15/17 17:20 - Constitutional Appears: No Acute Distress - Head Exam Head Exam: ATRAUMATIC, NORMOCEPHALIC - Eye Exam Eye Exam: EOMI - ENT Exam ENT Exam: Mucous Membranes Moist - Neck Exam Neck Exam: Full ROM - Respiratory Exam Respiratory Exam: NORMAL BREATHING PATTERN - Cardiovascular Exam Cardiovascular Exam: REGULAR RHYTHM, +S1, +S2 - GI/Abdominal Exam GI & Abdominal Exam: Soft (obese), Normal Bowel Sounds - Extremities Exam Extremities Exam: Full ROM. absent: Pedal Edema - Neurological Exam Neurological Exam: Alert, Awake, CN II-XII Intact - Psychiatric Exam Psychiatric exam: Normal Affect, Normal Mood - Skin Skin Exam: Dry, Normal Color, Warm Assessment and Plan - Assessment and Plan (Free Text) Assessment: 62 yr old F admitted for worsening dizziness and 1 episode of non-bilious vomiting. PMHx includes HTN, IDDM type 2 (dx at age 56), Chronic Kidney Disease stage 4 and moderate-severe seasonal allergies. 1. Dizziness -chronic, intermittent/recurrent, likely secondary to vertigo vs dehydration vs cardiac -CT head: enlarged pituitary 13mm, no brain mass effect or edema -troponin negative, proBNP wnl, B12/TSH/FT4 wnl, influenza A/B negative -Neurology consult appreciated: will follow recommendations -10/16/16 MRI Brain: incompletely characterized 1.6 x 1.6 x 1.3 cm mass in the sella turcica on the right, recommend dedicated MRI of the brain with and without IV contrast -10/16/16 MRA head and neck: no evidence of occlusion, stenosis or saccular aneurysm, normal MR angiography of the neck -Cardiology consult appreciated: stable cardiac [place] 2. IDDM type 2 -chronic, controlled -f/u HbA1c -lipid panel: cholesterol 139, triglycerides 150, LDL 69, HDL 30 -continue with home medications: Glimepiride 2mg PO BID, Insulin Glargine 25 units SC QD, Atorvastatin 40 mg PO QHS, Gabapentin 300mg PO TID, Fenofibrate 54mg PO QHS -hypoglycemia protocol in place 3. Hypertension -chronic, controlled -continue with home medications: Amlodipine 5 mg PO QD, Lisinopril/HCTZ 20mg- 25mg PO QD, Metoprolol Tartrate 100mg PO BID, ASA 81 mg PO QD -monitor BP 4. Chronic Kidney Disease stage 4 -chronic, stable, unknown etiology -Nephrology consult appreciated -avoid nephrotoxic drugs, renal dose mediation 5. Moderate-severe allergies -chronic, controlled -continue home medications: Fluticasone propionate 50mcg -2 sprays each nostril QD, Claritin 10 mg PO QD, Albuterol HFA 2 spray INH Q6 PRN for SOB 6. DVT prophylaxis -Lovenox 30 mg SC QD <Jewel Knapp K - Last Filed: 10/21/17 13:00> Objective - Vital Signs/Intake and Output Vital Signs (last 24 hours): Temp Pulse Resp BP Pulse Ox 99.0 F 71 18 124/73 96 10/21/17 07:55 10/21/17 09:17 10/21/17 07:55 10/21/17 09:17 10/21/17 07:55 - Medications Medications: Current Medications Albuterol (Ventolin Hfa 90 Mcg/Actuation (8 G)) 2 puff INH Q6 PRN PRN Reason: Shortness of Breath Amlodipine Besylate (Norvasc) 5 mg PO DAILY [facility] Last Admin: 10/21/17 09:16 Dose: 5 mg Aspirin (Aspirin Chewable) 81 mg PO DAILY [facility] Last Admin: 10/21/17 09:15 Dose: 81 mg Atorvastatin Calcium (Lipitor) 40 mg PO DAILY [facility] Last Admin: 10/21/17 09:17 Dose: 40 mg Clotrimazole (Lotrimin 1% Cream) 1 applic TOP BID [facility] Last Admin: 10/21/17 09:17 Dose: 1 applic Enoxaparin Sodium (Lovenox) 30 mg SC DAILY [facility] PRN Reason: Protocol Last Admin: 10/21/17 09:16 Dose: 30 mg Fenofibrate (Tricor) 48 mg PO HS [facility] Last Admin: 10/20/17 21:37 Dose: 48 mg Fluticasone Propionate (Flonase) 2 spr JULISSA DAILY [facility] Last Admin: 10/21/17 09:15 Dose: 2 spr Hydrochlorothiazide (Hydrodiuril) 25 mg PO DAILY [facility] Last Admin: 10/21/17 09:16 Dose: 25 mg Ciprofloxacin (Cipro 200mg/100ml D5w) 100 mls @ 100 mls/hr IVPB Q12 [facility] Last Admin: 10/21/17 09:00 Dose: 100 mls/hr Insulin Detemir (Levemir) 25 units SC DAILY [facility] Last Admin: 10/21/17 09:16 Dose: 25 unit Insulin Human Regular (Humulin R) 0 units SC ACCU-CHECK [facility] PRN Reason: Protocol Last Admin: 10/21/17 06:13 Dose: Not Given Lisinopril (Zestril) 20 mg PO DAILY [facility] Last Admin: 10/21/17 09:17 Dose: 20 mg Loratadine (Claritin) 10 mg PO DAILY [facility] Last Admin: 10/21/17 09:15 Dose: 10 mg Metoprolol Tartrate (Lopressor) 100 mg PO BID [facility] Last Admin: 10/21/17 09:17 Dose: 100 mg - Labs Labs: 10/20/17 04:25 10/20/17 04:25 PT 14.1 Seconds (9.8-13.1) H 10/15/17 17:20 INR 1.3 (0.9-1.2) H 10/15/17 17:20 APTT 29.8 Seconds (25.6-37.1) 10/15/17 17:20 Assessment and Plan - Assessment and Plan (Free Text) Assessment: Patient was personally seen and examined by me in rounds with residents. Available labs and diagnostic data reviewed. Case, Patient's condition and management plan discussed with residents in rounds. Agree with resident's progress note. Plan: As ordered.
[2017-10-17] MEDS: Insulin Detemir 100 Units/ml Inj SC SCH (08:42)
[2017-10-17] MEDS: Enoxaparin 30 mg Syringe SC SCH (08:47)
--- NOTE | 2017-10-17 10:15 | CP.PCM.PN ---
Subjective - Date & Time of Evaluation Date of Evaluation: 10/17/17 Time of Evaluation: 10:12 - Subjective Subjective: Ms. Aguilar was seen and examined at the bedside. She is alert, oriented in all spheres. She denies any headache, dizziness, lightheadedness, nausea, or vomiting. She further states of experiencing fine hand tremors this morning when her blood sugar was 59 mg/dl. She was given apple juice and hed hand tremors improved. She is able to answer questions appropriately and follow simple commands. Her MRA of the head and neck are within normal limits. MRI of the brain showed incompletely characterized 1.6 x 1.3 cm mass in the sella turcica on the right. She is requesting to go home today, pending all the results of her test. Objective - Vital Signs/Intake and Output Vital Signs (last 24 hours): Temp Pulse Resp BP Pulse Ox 98.4 F 88 18 120/67 97 10/17/17 08:01 10/17/17 09:00 10/17/17 08:01 10/17/17 08:56 10/17/17 08:01 - Medications Medications: Current Medications Albuterol (Ventolin Hfa 90 Mcg/Actuation (8 G)) 2 puff INH Q6 PRN PRN Reason: Shortness of Breath Amlodipine Besylate (Norvasc) 5 mg PO DAILY [facility] Last Admin: 10/17/17 08:54 Dose: 5 mg Aspirin (Aspirin Chewable) 81 mg PO DAILY [facility] Last Admin: 10/17/17 08:38 Dose: 81 mg Atorvastatin Calcium (Lipitor) 40 mg PO DAILY [facility] Last Admin: 10/17/17 08:45 Dose: 40 mg Clotrimazole (Lotrimin 1% Cream) 1 applic TOP BID [facility] Last Admin: 10/17/17 08:47 Dose: 1 applic Enoxaparin Sodium (Lovenox) 30 mg SC DAILY [facility] PRN Reason: Protocol Last Admin: 10/17/17 08:47 Dose: 30 mg Fenofibrate (Tricor) 48 mg PO HS [facility] Last Admin: 10/16/17 22:02 Dose: 48 mg Fluticasone Propionate (Flonase) 2 spr JULISSA DAILY [facility] Last Admin: 10/17/17 08:39 Dose: 2 spr Gabapentin (Neurontin) 300 mg PO TID [facility] Last Admin: 10/17/17 08:48 Dose: 300 mg Hydrochlorothiazide (Hydrodiuril) 25 mg PO DAILY [facility] Last Admin: 10/17/17 08:41 Dose: 25 mg Sodium Chloride (Sodium Chloride 0.9%) 1,000 mls @ 75 mls/hr IV .[id number] [facility] Stop: 10/17/17 15:11 Last Admin: 10/17/17 05:34 Dose: 75 mls/hr Insulin Detemir (Levemir) 25 units SC DAILY [facility] Last Admin: 10/17/17 08:42 Dose: 25 unit Insulin Human Regular (Humulin R) 0 units SC ACCU-CHECK [facility] PRN Reason: Protocol Last Admin: 10/17/17 06:57 Dose: Not Given Lisinopril (Zestril) 20 mg PO DAILY [facility] Last Admin: 10/17/17 08:56 Dose: 20 mg Loratadine (Claritin) 10 mg PO DAILY [facility] Last Admin: 10/17/17 08:38 Dose: 10 mg Metoprolol Tartrate (Lopressor) 100 mg PO BID [facility] Last Admin: 10/17/17 08:46 Dose: 100 mg - Labs Labs: 10/16/17 05:00 10/16/17 05:00 PT 14.1 Seconds (9.8-13.1) H 10/15/17 17:20 INR 1.3 (0.9-1.2) H 10/15/17 17:20 APTT 29.8 Seconds (25.6-37.1) 10/15/17 17:20 - Constitutional Appears: No Acute Distress - Eye Exam Additional comments: Nystagmus noted on right lateral gaze with fast beat to the right. - Neurological Exam Neurological Exam: Alert, Awake, CN II-XII Intact, Oriented x3 Neuro motor strength exam: Left Upper Extremity: 5, Right Upper Extremity: 5, Left Lower Extremity: 5, Right Lower Extremity: 5 Additional comments: She is able to follow simple commands and sensation is intact. Assessment and Plan (1) Dizziness Assessment & Plan: Case discussed with Dr. Savage, continue all current medical regimen.Recommend the following test, LH, FSH, GH, TSH, T3, T4, vitamin b 12, vitamin D, prothrombin gene analysis, CRP, ESR. Status: Acute
[2017-10-17 10:54] LABS: FSH 8.7 mIU/mL
[2017-10-17 11:08] LABS: T3 0.615 nmol/L (1.49-2.60)
--- NOTE | 2017-10-17 12:31 | CP.PCM.CON ---
History of Present Illness - History of Present Illness History of Present Illness: pt is seen and examined, full consult is dictated # 1. CKD-3 r/o dm nephropathy vs htn nephrosclerosis 2. htn 3. dm 4. r/o pituitary adenoma check hept.b,c juan jose,c3,c4, 24 hr up,cr,c rcl, u/s kidneys Past Patient History - Past Medical History & Family History Past Medical History?: Yes - Past Social History Smoking Status: Never Smoked - CARDIAC Hx Cardiac Disorders: Yes Hx Hypercholesterolemia: Yes Hx Hypertension: Yes - PULMONARY Hx Asthma: Yes - ENDOCRINE/METABOLIC Hx Diabetes Mellitus Type 2: Yes - MUSCULOSKELETAL/RHEUMATOLOGICAL Hx Falls: Yes - PSYCHIATRIC Hx Substance Use: No - SURGICAL HISTORY Hx Section: Yes Other/Comment: breast reduction - ANESTHESIA Hx Anesthesia: Yes Hx Anesthesia Reactions: No Meds Allergies/Adverse Reactions: Allergies Allergy/AdvReac Type Severity Reaction Status Date / Time No Known Allergies Allergy Verified 10/15/17 16:10 - Medications Medications: Current Medications Albuterol (Ventolin Hfa 90 Mcg/Actuation (8 G)) 2 puff INH Q6 PRN PRN Reason: Shortness of Breath Amlodipine Besylate (Norvasc) 5 mg PO DAILY [facility] Last Admin: 10/17/17 08:54 Dose: 5 mg Aspirin (Aspirin Chewable) 81 mg PO DAILY [facility] Last Admin: 10/17/17 08:38 Dose: 81 mg Atorvastatin Calcium (Lipitor) 40 mg PO DAILY [facility] Last Admin: 10/17/17 08:45 Dose: 40 mg Clotrimazole (Lotrimin 1% Cream) 1 applic TOP BID [facility] Last Admin: 10/17/17 08:47 Dose: 1 applic Enoxaparin Sodium (Lovenox) 30 mg SC DAILY [facility] PRN Reason: Protocol Last Admin: 10/17/17 08:47 Dose: 30 mg Fenofibrate (Tricor) 48 mg PO HS [facility] Last Admin: 10/16/17 22:02 Dose: 48 mg Fluticasone Propionate (Flonase) 2 spr JULISSA DAILY [facility] Last Admin: 10/17/17 08:39 Dose: 2 spr Gabapentin (Neurontin) 300 mg PO TID [facility] Last Admin: 10/17/17 12:26 Dose: 300 mg Hydrochlorothiazide (Hydrodiuril) 25 mg PO DAILY [facility] Last Admin: 10/17/17 08:41 Dose: 25 mg Sodium Chloride (Sodium Chloride 0.9%) 1,000 mls @ 75 mls/hr IV .[id number] [facility] Stop: 10/17/17 15:11 Last Admin: 10/17/17 05:34 Dose: 75 mls/hr Insulin Detemir (Levemir) 25 units SC DAILY [facility] Last Admin: 10/17/17 08:42 Dose: 25 unit Insulin Human Regular (Humulin R) 0 units SC ACCU-CHECK [facility] PRN Reason: Protocol Last Admin: 10/17/17 12:24 Dose: 1 u Lisinopril (Zestril) 20 mg PO DAILY [facility] Last Admin: 10/17/17 08:56 Dose: 20 mg Loratadine (Claritin) 10 mg PO DAILY [facility] Last Admin: 10/17/17 08:38 Dose: 10 mg Metoprolol Tartrate (Lopressor) 100 mg PO BID [facility] Last Admin: 10/17/17 08:46 Dose: 100 mg Results - Vital Signs Recent Vital Signs: Last Vital Signs Temp 98.2 F 10/17/17 12:07 Pulse 74 10/17/17 12:07 Resp 18 10/17/17 12:07 BP 109/70 10/17/17 12:07 Pulse Ox 94 L 10/17/17 12:07 - Labs Result Diagrams: 10/16/17 05:00 10/16/17 05:00 Labs: Laboratory Results - last 24 hr 10/16/17 10/16/17 10/17/17 15:35 21:46 04:30 ESR POC Glucose (mg/dL) 95 152 H Hemoglobin A1c 7.9 H Vitamin B12 Total T3 TSH 3rd Generation FSH 3rd Generation Luteinizing Hormone 10/17/17 10/17/17 10/17/17 05:38 06:06 10:04 ESR POC Glucose (mg/dL) 59 L 115 H Hemoglobin A1c Vitamin B12 270 Total T3 0.615 L TSH 3rd Generation 1.35 FSH 3rd Generation 8.7 Luteinizing Hormone 1.5 10/17/17 10/17/17 10:33 11:19 ESR 33 H POC Glucose (mg/dL) 176 H Hemoglobin A1c Vitamin B12 Total T3 TSH 3rd Generation FSH 3rd Generation Luteinizing Hormone
--- NOTE | 2017-10-17 16:31 | US ---
PROCEDURE: Ultrasound of the Kidneys HISTORY: htn,dm,ckd for kidney size COMPARISON: None available. TECHNIQUE: Sonogram of the kidneys. FINDINGS: RIGHT KIDNEY: Measures: 10.4 x 3.4 x 3.5 cm cm. No obstructing calculus, hydronephrosis, or renal cyst identified. LEFT KIDNEY: Measures: 10.3 x 3.6 x 3.8 cm cm. No obstructing calculus, hydronephrosis, or renal cyst identified. OTHER FINDINGS: None. IMPRESSION: No obstructing calculus, hydronephrosis, or renal cyst identified.
[2017-10-17 21:12] LABS: COMPLEMENT C4 37.9 mg/dL (14.0-44.0)
[2017-10-17 21:35] LABS: HEPATITIS B SURFACE AG NEGATIVE (NEGATIVE)
[2017-10-17 21:52] LABS: HEPATITIS C ANTIBODY Negative (NEGATIVE)
[2017-10-18] MEDS: Insulin Regular 100 units/ml SC SCH ×4 (06:17→23:05)
[2017-10-18 07:56] LABS: URINE BACTERIA RARE (<OCC); URINE BILIRUBIN NEGATIVE (NEGATIVE); URINE BLOOD NEGATIVE (NEGATIVE); URINE CLARITY SLIGHTY-CLOUDY (Clear); URINE COLOR YELLOW (YELLOW); URINE GLUCOSE (UA) NEG (Normal); URINE LEUKOCYTE ESTERASE MOD Leu/uL (Negative); URINE NITRATE NEGATIVE (NEGATIVE); URINE PROTEIN NEGATIVE (NEGATIVE); URINE UROBILINOGEN 0.2-1.0 mg/dL (0.2-1.0)
[2017-10-18] MEDS: Enoxaparin 30 mg Syringe SC SCH (09:11)
[2017-10-18] MEDS: Insulin Detemir 100 Units/ml Inj SC SCH (09:13)
--- NOTE | 2017-10-18 14:12 | CP.PCM.PN ---
Subjective - Date & Time of Evaluation Date of Evaluation: 10/18/17 Time of Evaluation: 14:12 - Subjective Subjective: pt is seen and examined, follow up consult is dictated #[id number] Objective - Vital Signs/Intake and Output Vital Signs (last 24 hours): Temp Pulse Resp BP Pulse Ox 97.3 F L 66 18 108/57 L 92 L 10/18/17 13:00 10/18/17 13:00 10/18/17 13:00 10/18/17 13:00 10/18/17 13:00 - Medications Medications: Current Medications Albuterol (Ventolin Hfa 90 Mcg/Actuation (8 G)) 2 puff INH Q6 PRN PRN Reason: Shortness of Breath Amlodipine Besylate (Norvasc) 5 mg PO DAILY [facility] Last Admin: 10/18/17 09:12 Dose: 5 mg Aspirin (Aspirin Chewable) 81 mg PO DAILY [facility] Last Admin: 10/18/17 09:13 Dose: 81 mg Atorvastatin Calcium (Lipitor) 40 mg PO DAILY [facility] Last Admin: 10/18/17 09:11 Dose: 40 mg Clotrimazole (Lotrimin 1% Cream) 1 applic TOP BID [facility] Last Admin: 10/18/17 09:13 Dose: 1 applic Enoxaparin Sodium (Lovenox) 30 mg SC DAILY [facility] PRN Reason: Protocol Last Admin: 10/18/17 09:11 Dose: 30 mg Fenofibrate (Tricor) 48 mg PO HS [facility] Last Admin: 10/17/17 22:05 Dose: 48 mg Fluticasone Propionate (Flonase) 2 spr JULISSA DAILY [facility] Last Admin: 10/18/17 09:13 Dose: 2 spr Gabapentin (Neurontin) 300 mg PO TID [facility] Last Admin: 10/18/17 13:28 Dose: 300 mg Hydrochlorothiazide (Hydrodiuril) 25 mg PO DAILY [facility] Last Admin: 10/18/17 09:12 Dose: 25 mg Insulin Detemir (Levemir) 25 units SC DAILY [facility] Last Admin: 10/18/17 09:13 Dose: 25 unit Insulin Human Regular (Humulin R) 0 units SC ACCU-CHECK [facility] PRN Reason: Protocol Last Admin: 10/18/17 12:00 Dose: 1 u Lisinopril (Zestril) 20 mg PO DAILY [facility] Last Admin: 10/18/17 09:11 Dose: 20 mg Loratadine (Claritin) 10 mg PO DAILY [facility] Last Admin: 10/18/17 09:12 Dose: 10 mg Metoprolol Tartrate (Lopressor) 100 mg PO BID [facility] Last Admin: 10/18/17 09:11 Dose: 100 mg - Labs Labs: 10/16/17 05:00 10/16/17 05:00 PT 14.1 Seconds (9.8-13.1) H 10/15/17 17:20 INR 1.3 (0.9-1.2) H 10/15/17 17:20 APTT 29.8 Seconds (25.6-37.1) 10/15/17 17:20
--- NOTE | 2017-10-18 15:49 | CP.PCM.PN ---
Subjective - Date & Time of Evaluation Date of Evaluation: 10/18/17 Time of Evaluation: 15:46 - Subjective Subjective: Mrs. Aguilar was seen and examined today at bedside with her family in the room. The patient continued to complain of light-headedness, dizziness, vertigo , tremors and shakiness. I discussed with her the results of her imaging and that I did not believe that her symptoms were caused by the MRI abnormality. But, that it could be from the gabapentin and the recent renal insufficiency. We discussed going down on the dose of gabapentin until her kidneys improve. Objective - Vital Signs/Intake and Output Vital Signs (last 24 hours): Temp Pulse Resp BP Pulse Ox 97.3 F L 66 18 108/57 L 92 L 10/18/17 13:00 10/18/17 13:00 10/18/17 13:00 10/18/17 13:00 10/18/17 13:00 - Medications Medications: Current Medications Albuterol (Ventolin Hfa 90 Mcg/Actuation (8 G)) 2 puff INH Q6 PRN PRN Reason: Shortness of Breath Amlodipine Besylate (Norvasc) 5 mg PO DAILY [facility] Last Admin: 10/18/17 09:12 Dose: 5 mg Aspirin (Aspirin Chewable) 81 mg PO DAILY [facility] Last Admin: 10/18/17 09:13 Dose: 81 mg Atorvastatin Calcium (Lipitor) 40 mg PO DAILY [facility] Last Admin: 10/18/17 09:11 Dose: 40 mg Clotrimazole (Lotrimin 1% Cream) 1 applic TOP BID [facility] Last Admin: 10/18/17 09:13 Dose: 1 applic Enoxaparin Sodium (Lovenox) 30 mg SC DAILY [facility] PRN Reason: Protocol Last Admin: 10/18/17 09:11 Dose: 30 mg Fenofibrate (Tricor) 48 mg PO HS [facility] Last Admin: 10/17/17 22:05 Dose: 48 mg Fluticasone Propionate (Flonase) 2 spr JULISSA DAILY [facility] Last Admin: 10/18/17 09:13 Dose: 2 spr Gabapentin (Neurontin) 100 mg PO TID [facility] Hydrochlorothiazide (Hydrodiuril) 25 mg PO DAILY [facility] Last Admin: 10/18/17 09:12 Dose: 25 mg Insulin Detemir (Levemir) 25 units SC DAILY [facility] Last Admin: 10/18/17 09:13 Dose: 25 unit Insulin Human Regular (Humulin R) 0 units SC ACCU-CHECK [facility] PRN Reason: Protocol Last Admin: 10/18/17 12:00 Dose: 1 u Lisinopril (Zestril) 20 mg PO DAILY [facility] Last Admin: 10/18/17 09:11 Dose: 20 mg Loratadine (Claritin) 10 mg PO DAILY [facility] Last Admin: 10/18/17 09:12 Dose: 10 mg Metoprolol Tartrate (Lopressor) 100 mg PO BID [facility] Last Admin: 10/18/17 09:11 Dose: 100 mg - Labs Labs: 10/16/17 05:00 10/16/17 05:00 PT 14.1 Seconds (9.8-13.1) H 10/15/17 17:20 INR 1.3 (0.9-1.2) H 10/15/17 17:20 APTT 29.8 Seconds (25.6-37.1) 10/15/17 17:20 Assessment and Plan (1) Vertigo Assessment & Plan: Could be due side-effects of gabapentin. Will decrease the dose to 100 mg TID and see if this improves. Status: Acute (2) Mass in region of sella turcica present on magnetic resonance imaging Assessment & Plan: This should be evaluated with a pituitary protocol MRI and neurosurgery should be consulted. Status: Acute
[2017-10-18] MEDS ORDERED: Sodium Chloride 0.9% 1,000 ML IV SCH (18:15)
--- NOTE | 2017-10-19 04:41 | PN ---
DATE: 10/18/2017 FOLLOWUP RENAL CONSULTATION LOCATION: The patient is located in room 406, bed 2. REQUESTED BY: Jewel Knapp MD REASON FOR FOLLOWUP: For CKD evaluation. SUBJECTIVE: Mrs. Aguilar is a 62-year-old elderly female with a history of long-standing hypertension, diabetes for about 6 years, was admitted with severe dizziness and difficulty to ambulate. The patient was found to have a pituitary mass. The patient denies any nausea, vomiting today and no fever, no cough, no chest pain, no palpitation. PHYSICAL EXAMINATION VITAL SIGNS: As follows; blood pressure 108/57, pulse 66, respirations 18, temperature 97.3, saturation 92%, height 5 feet 4 inches, weight is 160 pounds. GENERAL: Mrs. Aguilar is a 62-year-old elderly female, moderately built, moderately nourished, not in distress. HEENT: Pupils are normal and reactive to light and accommodation. Conjunctivae pink. Sclerae anicteric. Tongue is moist. Trachea is midline. LUNGS: Symmetric on both sides. Bilateral breath sounds present. Clear on auscultation. CARDIOVASCULAR SYSTEM: [place] at the fifth intercostal space, midclavicular line. S1 and S2 audible. No murmur. No gallop. ABDOMEN: Normal in appearance, soft, tympanic. No guarding. No rigidity. No hepatosplenomegaly. CENTRAL NERVOUS SYSTEM: The patient is alert, awake, oriented x3. Nonfocal neuro examination. Cranial nerves II through XII grossly intact. Sensory and motor system is within normal limits. EXTREMITIES: No cyanosis. No clubbing. No edema. MEDICATIONS: As follows: Aspirin 81 mg daily, Claritin 10 mg p.o. daily and Flonase 2 sprays daily, Humulin R for sliding scale, hydrochlorothiazide 25 mg daily, Levemir 25 units subcu daily, Lipitor 40 mg p.o. daily and metoprolol 100 mg p.o. b.i.d., Lovenox 30 mg subcu daily and Gabapentin 100 mg p.o. t.i.d., Norvasc 5 mg daily, sodium chloride, IV fluids 175 mL per hour, fenofibrate 48 mg p.o. at bedtime, Albuterol and Lisinopril 20 mg p.o. daily. LABORATORY DATA: Thyroxine level is 6.19. Urinalysis, yellow, slightly cloudy, pH 6, specific gravity 1.011, protein negative, glucose negative, ketones negative, blood negative, nitrites negative, bilirubin negative. Leukocyte esterase is moderate, rbc's 2 and wbc's 16, bacteria rare. Hepatitis B surface antigen is negative, surface antibody is negative and hepatitis C antibodies negative. Influenza A and B antibody negative. YESSENIA screening is negative and complementary level C3, C4 is negative. Ultrasound of the kidneys, right kidney 10.4, left kidney 10.3 cm. ASSESSMENT AND PLAN: In summary, Mrs. Aguilar is a 62-year-old elderly female with history of hypertension, diabetes, with persistent dizziness for the last 1-1/2 years, since 12/2016, was found to have right pituitary mass with increased BUN and creatinine. 1. Chronic kidney disease III, etiology is not clear, cannot rule out hypertensive nephrosclerosis, diabetic nephropathy less likely as there is no protein. 2. Pituitary mass. Rule out pituitary adenoma. 3. Hypertension. 4. Diabetes. Check urine culture and sensitivity. We will continue gentle IV hydration. We will follow with you. Large scale workup is within normal limits so far. Thank you for allowing me to participate in your patient's care. Alicia Castaneda MD 10/19/2017<
[2017-10-19] MEDS: Insulin Regular 100 units/ml SC SCH ×4 (06:53→23:07)
[2017-10-19 07:16] LABS: HEMOGLOBIN 9.5 g/dL (12.0-16.0); MEAN CELL VOLUME 81.8 fl (81.0-99.0); MEAN CORPUSCULAR HEMOGLOBIN 26.5 pg (27.0-31.0); MEAN CORPUSCULAR HGB CONC 32.4 g/dL (33.0-37.0); RBC 3.58 Mil/uL (3.80-5.20); RED CELL DISTRIBUTION WIDTH 13.7 % (11.5-14.5)
[2017-10-19 08:00] LABS: ALBUMIN 3.4 g/dL (3.5-5.0); CALCIUM 9.9 mg/dL (8.4-10.2)
[2017-10-19 08:15] LABS: U CREAT 24HOUR URINE 1222.5 mg/24hr (800-2800); URINE CREATININE 81.5 mg/dl
[2017-10-19] MEDS: Insulin Detemir 100 Units/ml Inj SC SCH (08:36)
[2017-10-19] MEDS: Enoxaparin 30 mg Syringe SC SCH (08:47)
[2017-10-19 09:10] LABS: URINE CREATININE 3.3 mg/dL
--- NOTE | 2017-10-19 11:51 | PN ---
DATE: 10/19/2017 SUBJECTIVE: The patient seen and examined. Interim events noted. Consults noted and appreciated. The patient remains in Progressive Care Unit, on telemetry monitoring. no chest pain, no shortness of breath. PHYSICAL EXAMINATION: GENERAL: The patient is in no acute distress. VITAL SIGNS: Stable. HEART: S1 and S2 normal and regular. LUNGS: Good bilateral air exchange. ABDOMEN: Soft, nontender. EXTREMITIES: No edema. No calf swelling. No tenderness. No acute ischemia. CENTRAL NERVOUS SYSTEM: Essentially unchanged. . Telemetry monitoring does not reveal significant arrhythmia. Plan as ordered. Jewel Knapp MD
--- NOTE | 2017-10-19 13:45 | CP.PCM.PN ---
Subjective - Date & Time of Evaluation Date of Evaluation: 10/19/17 Time of Evaluation: 13:44 - Subjective Subjective: pt is seen and examined, follow up consult is dictated # check urine c/s, urine foe eosinophils stain d/c neurontin until symptoms improve gfr is 34 ml/min Objective - Vital Signs/Intake and Output Vital Signs (last 24 hours): Temp Pulse Resp BP Pulse Ox 98.5 F 75 18 102/62 95 10/19/17 11:51 10/19/17 11:51 10/19/17 11:51 10/19/17 11:51 10/19/17 11:51 - Medications Medications: Current Medications Albuterol (Ventolin Hfa 90 Mcg/Actuation (8 G)) 2 puff INH Q6 PRN PRN Reason: Shortness of Breath Amlodipine Besylate (Norvasc) 5 mg PO DAILY [facility] Last Admin: 10/19/17 08:34 Dose: 5 mg Aspirin (Aspirin Chewable) 81 mg PO DAILY [facility] Last Admin: 10/19/17 08:36 Dose: 81 mg Atorvastatin Calcium (Lipitor) 40 mg PO DAILY [facility] Last Admin: 10/19/17 08:35 Dose: 40 mg Clotrimazole (Lotrimin 1% Cream) 1 applic TOP BID [facility] Last Admin: 10/19/17 08:36 Dose: 1 applic Fenofibrate (Tricor) 48 mg PO HS [facility] Last Admin: 10/18/17 21:52 Dose: 48 mg Fluticasone Propionate (Flonase) 2 spr JULISSA DAILY [facility] Last Admin: 10/19/17 08:32 Dose: 2 spr Gabapentin (Neurontin) 100 mg PO TID [facility] Last Admin: 10/19/17 08:34 Dose: 100 mg Hydrochlorothiazide (Hydrodiuril) 25 mg PO DAILY [facility] Last Admin: 10/19/17 08:35 Dose: 25 mg Sodium Chloride (Sodium Chloride 0.9%) 1,000 mls @ 75 mls/hr IV .[id number] [facility] Stop: 10/19/17 18:16 Last Admin: 10/19/17 08:32 Dose: 75 mls/hr Insulin Detemir (Levemir) 25 units SC DAILY [facility] Last Admin: 10/19/17 08:36 Dose: 25 unit Insulin Human Regular (Humulin R) 0 units SC ACCU-CHECK [facility] PRN Reason: Protocol Last Admin: 10/19/17 12:00 Dose: Not Given Lisinopril (Zestril) 20 mg PO DAILY [facility] Last Admin: 10/19/17 08:33 Dose: 20 mg Loratadine (Claritin) 10 mg PO DAILY [facility] Last Admin: 10/19/17 08:35 Dose: 10 mg Metoprolol Tartrate (Lopressor) 100 mg PO BID [facility] Last Admin: 10/19/17 08:34 Dose: 100 mg - Labs Labs: 10/19/17 06:30 10/19/17 06:30 PT 14.1 Seconds (9.8-13.1) H 10/15/17 17:20 INR 1.3 (0.9-1.2) H 10/15/17 17:20 APTT 29.8 Seconds (25.6-37.1) 10/15/17 17:20
--- NOTE | 2017-10-19 20:35 | PN ---
DATE: FOLLOWUP RENAL CONSULTATION LOCATION: The patient is located in room 406, bed 2. SUBJECTIVE: Mrs. Aguilar is a 62-year-old elderly female with a history of longstanding hypertension, diabetes for about 6 years, who was admitted with chief complaints of worsening dizziness and tremors and as per the patient, her dizziness started about 1-1/2 years ago which got worse over the last few weeks and decided to come to the hospital. 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 The patient denies any nausea or vomiting at this time, complains of tremors on Neurontin. PHYSICAL EXAMINATION: GENERAL: Mrs. Aguilar is a 62-year-old elderly female moderately built, moderately nourished, not in any acute distress. VITAL SIGNS: Blood pressure 102/62, pulse 75, respiration 18, temperature 98.5, saturations 95%. Height 5 feet 4 inches, weight is 160 pounds. HEENT: Pupils normal, reactive to light and accommodation. Conjunctivae pink. Sclerae anicteric. Tongue is moist. Trachea is midline. LUNGS: Symmetry on both sides. Bilateral breath sounds present, clear on auscultation. CARDIOVASCULAR: [place] at the fifth intercostal space, midclavicular line. S1 and S2 audible. No murmur or gallop. ABDOMEN: Normal in appearance, soft, tympanic. No guarding. No rigidity. No hepatosplenomegaly. CENTRAL NERVOUS SYSTEM: The patient is on alert, awake, and oriented x3. Nonfocal neuro examination. Cranial nerves II through XII grossly intact. Sensory and motor system is within normal limits. EXTREMITIES: No cyanosis. No clubbing. No edema except tremors. LABORATORY DATA: Include as follows: WBC 9.0, hemoglobin 9.5, hematocrit is 29.3, platelets 299. Sodium 146, potassium 3.5, chloride 105, CO2 of 31, BUN 37, creatinine 2.5, glucose 96, and calcium 9.9. Total bili 0.4, AST 40, ALT 47, alkaline phosphatase 73, total protein 6.7, albumin is 3.4. A 24-hour urine volume is 1500, 24-hour urine creatinine is 1222.5 mg, 24-urine protein is 180 mg, and creatinine clearance is 34 mL. All her serologies negative, YESSENIA is negative, C3 and C4 is normal, and hepatitis B and C serology was also normal. MEDICATIONS: Include as follows: Aspirin 81 mg daily, loratadine 10 mg p.o. daily, Flonase 2 sprays daily, Humulin R per sliding scale, hydrochlorothiazide 25 mg p.o. daily, Levemir 25 mg subcu daily, Lipitor 40 mg daily, Lopressor 100 mg p.o. b.i.d., Neurontin 100 mg p.o. t.i.d., Norvasc 5 mg daily, IV fluids normal saline at 75 mL per hour, TriCor 48 mg p.o. at bedtime, albuterol inhaler 2 puffs q. 6 hours, lisinopril 20 mg p.o. daily. The patient was taking Neurontin 300 mg p.o. t.i.d. ASSESSMENT AND PLAN: In summary, Mrs. Aguilar is a 62-year-old elderly female with history of hypertension, diabetes, and right pituitary mass with dizziness, on Neurontin 300 mg p.o. t.i.d. and decreased to 100 mg t.i.d. with creatinine clearance about 34 mL. 1. Chronic kidney disease stage III B, etiology is not clear, cannot rule out hypertensive nephrosclerosis, and/or diabetic nephropathy. 2. Rule out urinary tract infection. Rule out interstitial nephritis. 3. Hypertension, blood pressure is stable. Hold blood pressure medicine for systolic blood pressure less than 130 and we will also discontinue Neurontin until the symptoms improve. Continue IV fluids. We will follow with you. We will check urine cultures and urine for eosinophils. Thank you for allowing me to participate in your patient's care. Alicia Castaneda MD
[2017-10-20 05:40] LABS: ALB/GLOB RATIO 1.1 (1.0-2.1); ALBUMIN 3.6 g/dL (3.5-5.0); CALCIUM 10.1 mg/dL (8.4-10.2)
[2017-10-20 05:50] LABS: HEMOGLOBIN 9.7 g/dL (12.0-16.0); MEAN CELL VOLUME 80.9 fl (81.0-99.0); MEAN CORPUSCULAR HEMOGLOBIN 27.3 pg (27.0-31.0); MEAN CORPUSCULAR HGB CONC 33.7 g/dL (33.0-37.0); RBC 3.55 Mil/uL (3.80-5.20); RED CELL DISTRIBUTION WIDTH 13.5 % (11.5-14.5); WHITE BLOOD COUNT 8.1 K/uL (4.8-10.8)
[2017-10-20] MEDS: Insulin Regular 100 units/ml SC SCH ×4 (06:37→23:00)
[2017-10-20] MEDS: Insulin Detemir 100 Units/ml Inj SC SCH (08:49)
--- NOTE | 2017-10-20 09:15 | CON ---
DATE: 10/17/2017 FOLLOWUP RENAL CONSULTATION LOCATION: The patient is located in room 406, bed 2. REQUESTED BY: Jewel Knapp MD. REASON FOR EVALUATION: Chronic kidney disease and for further evaluation. HISTORY OF PRESENT ILLNESS: Mrs. Aguilar is a 62-year-old elderly female with a past medical history significant for hypertension for 6 years; diabetes for 6 years; hyperlipidemia; CAD; poor left ventricular ejection fraction; breast reduction bilaterally about 20 to 30 years ago; x2 in 1980 and 1981; was admitted with the chief complaints of dizziness since 12/2016, which was gradually getting worse and now patient was complaining of severe dizziness, difficult to ambulate and wobbling, and also associated with nausea and vomiting x1 and headache for 2 days. Denies any falls. No chest pain or palpitations. No fever. No cough. No shortness of breath. No edema of the legs. No urinary symptoms. PAST MEDICAL HISTORY: Significant for hypertension for 6 years, diabetes for 6 years, hyperlipidemia, and CAD with poor LV function. PAST SURGICAL HISTORY: Status post breast reduction surgery and x2. ALLERGIES: NO KNOWN DRUG ALLERGIES. SOCIAL HISTORY: No smoking, no alcohol, no drugs. PERSONAL HISTORY: She is single. She has two children. Her mother . Father, does not know. She has 3 sisters and 4 brothers and 3 brothers , only one is alive. MEDICATIONS: Her current medications include aspirin 81 mg p.o. daily, Flonase, Humulin R per sliding scale, hydrochlorothiazide 25 mg p.o. daily, Lipitor 40 mg p.o. daily, Lopressor 100 mg p.o. b.i.d., Lovenox, Neurontin, amlodipine 5 mg daily, fenofibrate 48 mg p.o. daily, albuterol, and lisinopril. REVIEW OF SYSTEMS: Significant for dizziness and headache. Nausea and vomiting x1 and difficult to ambulate. All other review of systems are reviewed and are negative. PHYSICAL EXAMINATION: VITAL SIGNS: Blood pressure 109/70, pulse 74, respirations 18, temperature 98.2, saturation 94%. Height 5 feet 4 inches and weight is 160 pounds. GENERAL: Mrs. Aguilar is a 62-year-old elderly female, moderately built, moderately nourished, not in acute distress. HEENT: Pupils are normal and reactive to light and accommodation. Conjunctivae are pink. Sclerae are anicteric. Tongue is moist. Trachea is midline. LUNGS: Symmetric on both sides. Bilateral breath sounds are present. Clear on auscultation. CARDIOVASCULAR SYSTEM: [place] at the fifth intercostal space, midclavicular line. S1 and S2 audible. No murmur. No gallop. ABDOMEN: Normal in appearance, soft, tympanic. No guarding. No rigidity. No hepatosplenomegaly. CENTRAL NERVOUS SYSTEM: Patient is alert, awake, oriented x3. Nonfocal neuro examination. Cranial nerves II through XII grossly intact. Sensory and motor system is within normal limits. EXTREMITIES: No cyanosis. No clubbing. No edema. LABORATORY DATA: C-reactive protein more than 15, B12 is 270, and vitamin D 17. T3 0.615, TSH is 1.35. Other laboratory data: ESR is 33, WBC 10.1, hemoglobin 10.9, hematocrit 33.9, platelets 301. Sodium 142, potassium 3.6, chloride 104, CO2 of 26, BUN 42, creatinine 2.8, glucose 67, calcium is 10. Total bilirubin 0.9, AST 53, ALT 56, alkaline phosphatase 61, total protein 7.0, albumin is 3.9. Cholesterol is 139, triglycerides 150, LDL 69, HDL 30. T3 is 0.66, TSH is 1.47 and other reports, CT of the head as of 10/15/2017, impression: Pituitary gland appears enlarged approximately 13 mm. MRI utilizing a pituitary protocol recommended for further evaluation. ASSESSMENT: In summary, Mrs. Aguilar is a 62-year-old female with a history of hypertension, diabetes, hyperlipidemia, was admitted with dizziness for the last one and half year, was found to have a pituitary mass with increased BUN and creatinine. 1. Chronic kidney disease 3, rule out hypertensive nephrosclerosis, rule out diabetic nephropathy. 2. Hypertension. Blood pressure is stable. 3. Diabetes. Sugars are under control. 4. Pituitary mass. Rule out pituitary adenoma. PLAN: Check hepatitis B and C serology, YESSENIA, C3, C4, and ultrasound of the kidneys for size, 24-hour urine protein, creatinine, creatinine clearance. I will follow with you. Thank you for allowing me to participate in your patient's care. Alicia Castaneda MD [facility] # [id number]
--- NOTE | 2017-10-20 10:12 | PN ---
DATE: 10/18/2017 SUBJECTIVE: The patient is seen and examined. Interim events noted. Consults noted and appreciated. The patient remains in Progressive Care Unit on telemetry monitoring. Feels okay. Still has dizziness. No chest pain or shortness of breath. PHYSICAL EXAMINATION: GENERAL: The patient is in no acute distress. VITAL SIGNS: Stable. HEART: S1 and S2, normal and regular. LUNGS: Good bilateral air exchange. ABDOMEN: Soft, nontender. No organomegaly. No fluid. Bowel sounds are plus and normal. EXTREMITIES: No edema. No calf swelling. No tenderness. No acute ischemia. CENTRAL NERVOUS SYSTEM: Essentially unchanged. DIAGNOSTIC DATA: Available diagnostic data reviewed. Telemetry monitoring does not reveal significant arrhythmias. ASSESSMENT AND PLAN: Overall, the patient's general medical condition is stable. Plan as ordered. Jewel Knapp MD
[2017-10-20] MEDS: Sodium Chloride 0.9% 1,000 ML IV SCH ×2 (10:50→23:35)
--- NOTE | 2017-10-20 10:59 | CP.PCM.PN ---
Subjective - Date & Time of Evaluation Date of Evaluation: 10/20/17 Time of Evaluation: 10:57 - Subjective Subjective: Ms. Aguilar was seen and examined at the bedside. She is alert, oriented in all spheres. She denies any dizziness, numbness, headache, blurred vision, but states of unsteady gait even for short distance from her bed to the bathroom. She is able to follow simple commands. There was no untoward events overnight. Objective - Vital Signs/Intake and Output Vital Signs (last 24 hours): Temp Pulse Resp BP Pulse Ox 98.1 F 72 18 121/71 94 L 10/20/17 07:59 10/20/17 09:00 10/20/17 07:59 10/20/17 08:48 10/20/17 07:59 - Medications Medications: Current Medications Albuterol (Ventolin Hfa 90 Mcg/Actuation (8 G)) 2 puff INH Q6 PRN PRN Reason: Shortness of Breath Amlodipine Besylate (Norvasc) 5 mg PO DAILY [facility] Last Admin: 10/20/17 08:48 Dose: 5 mg Aspirin (Aspirin Chewable) 81 mg PO DAILY [facility] Last Admin: 10/20/17 08:47 Dose: 81 mg Atorvastatin Calcium (Lipitor) 40 mg PO DAILY [facility] Last Admin: 10/20/17 08:48 Dose: 40 mg Clotrimazole (Lotrimin 1% Cream) 1 applic TOP BID [facility] Last Admin: 10/20/17 08:46 Dose: 1 applic Enoxaparin Sodium (Lovenox) 30 mg SC DAILY [facility] PRN Reason: Protocol Fenofibrate (Tricor) 48 mg PO HS [facility] Last Admin: 10/19/17 22:15 Dose: 48 mg Fluticasone Propionate (Flonase) 2 spr JULISSA DAILY [facility] Last Admin: 10/20/17 08:46 Dose: 2 spr Hydrochlorothiazide (Hydrodiuril) 25 mg PO DAILY [facility] Last Admin: 10/20/17 08:48 Dose: 25 mg Sodium Chloride (Sodium Chloride 0.9%) 1,000 mls @ 75 mls/hr IV .[id number] [facility] Stop: 10/21/17 10:02 Insulin Detemir (Levemir) 25 units SC DAILY [facility] Last Admin: 10/20/17 08:49 Dose: 25 unit Insulin Human Regular (Humulin R) 0 units SC ACCU-CHECK [facility] PRN Reason: Protocol Last Admin: 10/20/17 06:37 Dose: Not Given Lisinopril (Zestril) 20 mg PO DAILY [facility] Last Admin: 10/20/17 08:48 Dose: 20 mg Loratadine (Claritin) 10 mg PO DAILY [facility] Last Admin: 10/20/17 08:48 Dose: 10 mg Metoprolol Tartrate (Lopressor) 100 mg PO BID [facility] Last Admin: 10/20/17 08:47 Dose: 100 mg - Labs Labs: 10/20/17 04:25 10/20/17 04:25 PT 14.1 Seconds (9.8-13.1) H 10/15/17 17:20 INR 1.3 (0.9-1.2) H 10/15/17 17:20 APTT 29.8 Seconds (25.6-37.1) 10/15/17 17:20 - Constitutional Appears: No Acute Distress - Head Exam Head Exam: NORMAL INSPECTION - Neurological Exam Neurological Exam: Alert, Awake, Oriented x3 Neuro motor strength exam: Left Upper Extremity: 4, Right Upper Extremity: 4, Left Lower Extremity: 4, Right Lower Extremity: 4 Additional comments: She is able to answer questions appropriately and follows simple commands. Sensation remains intact. Assessment and Plan (1) Mass in region of sella turcica present on magnetic resonance imaging Assessment & Plan: Case discussed with Dr. Savage, continue all current medical, physical therapies. Recommend neurosurgery to evaluate the mass in the region of sella turcica. Status: Acute
[2017-10-20] MEDS: Enoxaparin 30 mg Syringe SC SCH (12:09)
--- NOTE | 2017-10-20 16:43 | CP.PCM.PN ---
Subjective - Subjective Subjective: feeling much better today, less dizziness but still feeling some on R side, no CP, no weakness or numbness Objective - Vital Signs/Intake and Output Vital Signs (last 24 hours): Temp Pulse Resp BP Pulse Ox 98.0 F 71 18 128/78 97 10/20/17 16:15 10/20/17 16:15 10/20/17 16:15 10/20/17 16:15 10/20/17 16:15 - Medications Medications: Current Medications Albuterol (Ventolin Hfa 90 Mcg/Actuation (8 G)) 2 puff INH Q6 PRN PRN Reason: Shortness of Breath Amlodipine Besylate (Norvasc) 5 mg PO DAILY [facility] Last Admin: 10/20/17 08:48 Dose: 5 mg Aspirin (Aspirin Chewable) 81 mg PO DAILY [facility] Last Admin: 10/20/17 08:47 Dose: 81 mg Atorvastatin Calcium (Lipitor) 40 mg PO DAILY [facility] Last Admin: 10/20/17 08:48 Dose: 40 mg Clotrimazole (Lotrimin 1% Cream) 1 applic TOP BID [facility] Last Admin: 10/20/17 08:46 Dose: 1 applic Enoxaparin Sodium (Lovenox) 30 mg SC DAILY [facility] PRN Reason: Protocol Last Admin: 10/20/17 12:09 Dose: 30 mg Fenofibrate (Tricor) 48 mg PO HS [facility] Last Admin: 10/19/17 22:15 Dose: 48 mg Fluticasone Propionate (Flonase) 2 spr JULISSA DAILY [facility] Last Admin: 10/20/17 08:46 Dose: 2 spr Hydrochlorothiazide (Hydrodiuril) 25 mg PO DAILY [facility] Last Admin: 10/20/17 08:48 Dose: 25 mg Sodium Chloride (Sodium Chloride 0.9%) 1,000 mls @ 75 mls/hr IV .[id number] [facility] Stop: 10/21/17 10:02 Last Admin: 10/20/17 10:50 Dose: 75 mls/hr Insulin Detemir (Levemir) 25 units SC DAILY [facility] Last Admin: 10/20/17 08:49 Dose: 25 unit Insulin Human Regular (Humulin R) 0 units SC ACCU-CHECK [facility] PRN Reason: Protocol Last Admin: 10/20/17 13:08 Dose: Not Given Lisinopril (Zestril) 20 mg PO DAILY [facility] Last Admin: 10/20/17 08:48 Dose: 20 mg Loratadine (Claritin) 10 mg PO DAILY [facility] Last Admin: 10/20/17 08:48 Dose: 10 mg Metoprolol Tartrate (Lopressor) 100 mg PO BID [facility] Last Admin: 10/20/17 08:47 Dose: 100 mg - Labs Labs: 10/20/17 04:25 10/20/17 04:25 PT 14.1 Seconds (9.8-13.1) H 10/15/17 17:20 INR 1.3 (0.9-1.2) H 10/15/17 17:20 APTT 29.8 Seconds (25.6-37.1) 10/15/17 17:20 - Constitutional Appears: Non-toxic ([id number]), No Acute Distress ( [id number]) - Head Exam Head Exam: ATRAUMATIC ([id number]) - Eye Exam Eye Exam: EOMI ( [id number] ) Pupil Exam: NORMAL ACCOMODATION ([id number]) - ENT Exam ENT Exam: Mucous Membranes Moist ( [id number] ) - Neck Exam Neck Exam: Full ROM - Respiratory Exam Respiratory Exam: Clear to Ausculation Bilateral, NORMAL BREATHING PATTERN - Cardiovascular Exam Cardiovascular Exam: REGULAR RHYTHM, +S1, +S2 - GI/Abdominal Exam GI & Abdominal Exam: Soft, Normal Bowel Sounds ( [id number]) - Extremities Exam Extremities Exam: Full ROM ( [id number] ), Normal Inspection ([id number]) - Back Exam Back Exam: NORMAL INSPECTION - Neurological Exam Neurological Exam: Alert, Awake, Oriented x3 Neuro motor strength exam: Left Upper Extremity: 4, Right Upper Extremity: 4, Left Lower Extremity: 4, Right Lower Extremity: 4 - Psychiatric Exam Psychiatric exam: Normal Affect, Normal Mood - Skin Skin Exam: Normal Color, Warm Assessment and Plan - Assessment and Plan (Free Text) Assessment: 1, Dizziness, with 1.6x1.3cm mass in the R sella turcica area -neurology consult appreciated, recommend neurosurgery evaluation. 2, T2DM, -chronic, continue current meds, follow up A1c, monitor FS, insulin SS 3, HTN, ] -chronic, controlled on current meds 4, CKD, -chronic and stable, nephrology consult appreciated, monitor renal function, avoid nephrotoxic meds. above d/w dr rai
[2017-10-20] MEDS ORDERED: Potassium Chloride 20 mEq ER Tab PO ONE (18:24)
--- NOTE | 2017-10-20 19:04 | CP.PCM.PN ---
Subjective - Date & Time of Evaluation Date of Evaluation: 10/20/17 Time of Evaluation: 19:03 - Subjective Subjective: pt is seen and examined, follow up consult is dictated #[id number] uti will add cipro Objective - Vital Signs/Intake and Output Vital Signs (last 24 hours): Temp Pulse Resp BP Pulse Ox 98.0 F 71 18 128/78 97 10/20/17 16:15 10/20/17 17:27 10/20/17 16:15 10/20/17 17:27 10/20/17 16:15 Intake and Output: 10/20/17 10/21/17 18:59 06:59 Intake Total 1825 Output Total 7 Balance 1818 - Medications Medications: Current Medications Albuterol (Ventolin Hfa 90 Mcg/Actuation (8 G)) 2 puff INH Q6 PRN PRN Reason: Shortness of Breath Amlodipine Besylate (Norvasc) 5 mg PO DAILY [facility] Last Admin: 10/20/17 08:48 Dose: 5 mg Aspirin (Aspirin Chewable) 81 mg PO DAILY [facility] Last Admin: 10/20/17 08:47 Dose: 81 mg Atorvastatin Calcium (Lipitor) 40 mg PO DAILY [facility] Last Admin: 10/20/17 08:48 Dose: 40 mg Clotrimazole (Lotrimin 1% Cream) 1 applic TOP BID [facility] Last Admin: 10/20/17 17:25 Dose: 1 applic Enoxaparin Sodium (Lovenox) 30 mg SC DAILY [facility] PRN Reason: Protocol Last Admin: 10/20/17 12:09 Dose: 30 mg Fenofibrate (Tricor) 48 mg PO HS [facility] Last Admin: 10/19/17 22:15 Dose: 48 mg Fluticasone Propionate (Flonase) 2 spr JULISSA DAILY [facility] Last Admin: 10/20/17 08:46 Dose: 2 spr Hydrochlorothiazide (Hydrodiuril) 25 mg PO DAILY [facility] Last Admin: 10/20/17 08:48 Dose: 25 mg Sodium Chloride (Sodium Chloride 0.9%) 1,000 mls @ 75 mls/hr IV .[id number] [facility] Stop: 10/21/17 10:02 Last Admin: 10/20/17 10:50 Dose: 75 mls/hr Insulin Detemir (Levemir) 25 units SC DAILY [facility] Last Admin: 10/20/17 08:49 Dose: 25 unit Insulin Human Regular (Humulin R) 0 units SC ACCU-CHECK [facility] PRN Reason: Protocol Last Admin: 10/20/17 17:25 Dose: Not Given Lisinopril (Zestril) 20 mg PO DAILY [facility] Last Admin: 10/20/17 08:48 Dose: 20 mg Loratadine (Claritin) 10 mg PO DAILY [facility] Last Admin: 10/20/17 08:48 Dose: 10 mg Metoprolol Tartrate (Lopressor) 100 mg PO BID [facility] Last Admin: 10/20/17 17:27 Dose: 100 mg - Labs Labs: 10/20/17 04:25 10/20/17 04:25 PT 14.1 Seconds (9.8-13.1) H 10/15/17 17:20 INR 1.3 (0.9-1.2) H 10/15/17 17:20 APTT 29.8 Seconds (25.6-37.1) 10/15/17 17:20
[2017-10-20] MEDS: Ciprofloxacin 200mg/100ml D5W 100 ML IVPB SCH (21:38)
[2017-10-21 00:52] VITALS: RESP 18
--- NOTE | 2017-10-21 01:15 | PN ---
DATE: FOLLOWUP RENAL CONSULTATION LOCATIONS: The patient is located in room 406, bed 2. REQUESTED BY: Jewel Knapp MD. REASON FOR FOLLOWUP: Chronic kidney disease, for further evaluation. SUBJECTIVE: Mrs. Aguilar is a 62-year-old elderly female with a history of hypertension, diabetes, hyperlipidemia, asthma, who was admitted with chief complaints of dizziness, frontal headache, neck pain, body aches and also the dizziness was getting worse and decided to come to the hospital. 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 The patient is not in acute distress, today feeling better, less tremor. The patient is off on Neurontin since yesterday morning dose. No chest pain, no palpitation, no fever, no cough. The patient claims she had physical therapy today. PHYSICAL EXAMINATION: VITAL SIGNS: Blood pressure 125/80, pulse 67, respirations 20, temperature 97.9, saturation 96%. Height 5 feet 4 inches, weight is 160 pounds. GENERAL: Mrs. Aguilar is a 62-year-old elderly female, moderate built, moderately nourished, not in distress. HEENT: Pupils normal, reactive to light and accommodation. Conjunctiva pink. Sclerae anicteric. Tongue is moist. Trachea is midline. LUNGS: Symmetrical on both sides. Bilateral breath sounds present. Clear to auscultation. CARDIOVASCULAR SYSTEM: [place] at the fifth intercostal space, midclavicular line. S1 and S2 audible. No murmur or gallop. ABDOMEN: Normal in appearance, soft, tympanic. No guarding. No rigidity. No hepatosplenomegaly. CENTRAL NERVOUS SYSTEM: The patient is alert, awake, oriented x3, nonfocal. NEUROLOGIC: Cranial nerves II through XII grossly intact. Sensory and motor system is grossly within normal limits. EXTREMITIES: No cyanosis. No clubbing. No edema, less tremors. CURRENT MEDICATIONS: Include as follows: Aspirin 81 mg daily, Claritin 10 mg p.o. daily, Flonase 2 sprays daily, Humulin R per sliding scale, hydrochlorothiazide 25 mg p.o. daily, Levemir 25 units subcutaneous daily, Lipitor 40 mg daily, Lopressor 100 mg p.o. b.i.d., Lovenox 30 mg subcutaneous daily, amlodipine 5 mg daily, IV fluids normal saline at 75 mL per hour, TriCor 48 mg at bedtime, Ventolin inhaler and lisinopril 20 mg p.o. daily. LABORATORY DATA: Include as follows: WBC 8.1, hemoglobin 9.7, hematocrit is 28.8, platelets 312, MCV 80.9. Sodium 144, potassium 3.3, chloride 105, CO2 of 28, BUN 32, creatinine 2.3, glucose 78, and calcium 10.1. Total bili 0.3, AST 29, ALT 47, alkaline phosphatase 76, total protein is 7, albumin is 3.6. Urine is negative. A 24-hour urine volume is 1500, 24-hour urine creatinine is 1.22 g, 24-urine protein is 180 mg, and creatinine clearance is about 34 mL. ASSESSMENT: In summary Mrs. Aguilar is a 62-year-old elderly female with the history of hypertension, diabetes, hyperlipidemia, asthma, with renal failure and also right pituitary mass. Now urine culture positive for gram-negative rods more than 100,000 colony-forming units. 1. Hypertension. Blood pressure is stable. Continue her current medications hydrochlorothiazide, Norvasc and lisinopril. 2. Chronic kidney disease, rule out hypertensive nephrosclerosis versus diabetic nephropathy less likely. 3. Urinary tract infection. 4. Anemia secondary to renal failure. PLAN: We will start Cipro 250 mg p.o. b.i.d. until identification is available and culture and sensitivity is available. Continue to hold Neurontin and continue IV fluids. We will follow with you. Thank you for allowing me to participate in your patient's care. Alicia Castaneda MD
[2017-10-21 05:12] VITALS: O2SAT 96
[2017-10-21] MEDS: Insulin Regular 100 units/ml SC SCH (06:13)
[2017-10-21 07:56] VITALS: BP 124/73; PULSE 71; TEMP 99
[2017-10-21] MEDS: Ciprofloxacin 200mg/100ml D5W 100 ML IVPB SCH (09:00)
[2017-10-21] MEDS: Insulin Detemir 100 Units/ml Inj SC SCH (09:16)
[2017-10-21] MEDS: Enoxaparin 30 mg Syringe SC SCH (09:16)
--- NOTE | 2017-10-21 09:26 | CP.PCM.PN ---
Subjective - Date & Time of Evaluation Date of Evaluation: 10/21/17 Time of Evaluation: 07:05 Objective - Vital Signs/Intake and Output Vital Signs (last 24 hours): Temp Pulse Resp BP Pulse Ox 99.0 F 71 18 124/73 96 10/21/17 07:55 10/21/17 09:17 10/21/17 07:55 10/21/17 09:17 10/21/17 07:55 - Medications Medications: Current Medications Albuterol (Ventolin Hfa 90 Mcg/Actuation (8 G)) 2 puff INH Q6 PRN PRN Reason: Shortness of Breath Amlodipine Besylate (Norvasc) 5 mg PO DAILY [facility] Last Admin: 10/21/17 09:16 Dose: 5 mg Aspirin (Aspirin Chewable) 81 mg PO DAILY [facility] Last Admin: 10/21/17 09:15 Dose: 81 mg Atorvastatin Calcium (Lipitor) 40 mg PO DAILY [facility] Last Admin: 10/21/17 09:17 Dose: 40 mg Clotrimazole (Lotrimin 1% Cream) 1 applic TOP BID [facility] Last Admin: 10/21/17 09:17 Dose: 1 applic Enoxaparin Sodium (Lovenox) 30 mg SC DAILY [facility] PRN Reason: Protocol Last Admin: 10/21/17 09:16 Dose: 30 mg Fenofibrate (Tricor) 48 mg PO HS [facility] Last Admin: 10/20/17 21:37 Dose: 48 mg Fluticasone Propionate (Flonase) 2 spr JULISSA DAILY [facility] Last Admin: 10/21/17 09:15 Dose: 2 spr Hydrochlorothiazide (Hydrodiuril) 25 mg PO DAILY [facility] Last Admin: 10/21/17 09:16 Dose: 25 mg Sodium Chloride (Sodium Chloride 0.9%) 1,000 mls @ 75 mls/hr IV .[id number] [facility] Stop: 10/21/17 10:02 Last Admin: 10/20/17 23:35 Dose: Not Given Ciprofloxacin (Cipro 200mg/100ml D5w) 100 mls @ 100 mls/hr IVPB Q12 [facility] Last Admin: 10/21/17 09:00 Dose: 100 mls/hr Insulin Detemir (Levemir) 25 units SC DAILY [facility] Last Admin: 10/21/17 09:16 Dose: 25 unit Insulin Human Regular (Humulin R) 0 units SC ACCU-CHECK [facility] PRN Reason: Protocol Last Admin: 10/21/17 06:13 Dose: Not Given Lisinopril (Zestril) 20 mg PO DAILY [facility] Last Admin: 10/21/17 09:17 Dose: 20 mg Loratadine (Claritin) 10 mg PO DAILY [facility] Last Admin: 10/21/17 09:15 Dose: 10 mg Metoprolol Tartrate (Lopressor) 100 mg PO BID [facility] Last Admin: 10/21/17 09:17 Dose: 100 mg - Labs Labs: 10/20/17 04:25 10/20/17 04:25 PT 14.1 Seconds (9.8-13.1) H 10/15/17 17:20 INR 1.3 (0.9-1.2) H 10/15/17 17:20 APTT 29.8 Seconds (25.6-37.1) 10/15/17 17:20
--- NOTE | 2017-10-21 09:47 | CP.PCM.PN ---
Subjective - Date & Time of Evaluation Date of Evaluation: 10/21/17 Time of Evaluation: 09:44 - Subjective Subjective: pt admitted with complaints unrelated to macro-adenoma as seen on MRI She has not had full endocrine work up which will determine if this can be treated medically She also needs visual field exam(not just bedside confrontation study) Transphenoidal surgery not possible at [facility] After d/c refer to our office for further evaluation and discussion Prolactin FH, LSH GH ordered Objective - Vital Signs/Intake and Output Vital Signs (last 24 hours): Temp Pulse Resp BP Pulse Ox 99.0 F 71 18 124/73 96 10/21/17 07:55 10/21/17 09:17 10/21/17 07:55 10/21/17 09:17 10/21/17 07:55 - Medications Medications: Current Medications Albuterol (Ventolin Hfa 90 Mcg/Actuation (8 G)) 2 puff INH Q6 PRN PRN Reason: Shortness of Breath Amlodipine Besylate (Norvasc) 5 mg PO DAILY [facility] Last Admin: 10/21/17 09:16 Dose: 5 mg Aspirin (Aspirin Chewable) 81 mg PO DAILY [facility] Last Admin: 10/21/17 09:15 Dose: 81 mg Atorvastatin Calcium (Lipitor) 40 mg PO DAILY [facility] Last Admin: 10/21/17 09:17 Dose: 40 mg Clotrimazole (Lotrimin 1% Cream) 1 applic TOP BID [facility] Last Admin: 10/21/17 09:17 Dose: 1 applic Enoxaparin Sodium (Lovenox) 30 mg SC DAILY [facility] PRN Reason: Protocol Last Admin: 10/21/17 09:16 Dose: 30 mg Fenofibrate (Tricor) 48 mg PO HS [facility] Last Admin: 10/20/17 21:37 Dose: 48 mg Fluticasone Propionate (Flonase) 2 spr JULISSA DAILY [facility] Last Admin: 10/21/17 09:15 Dose: 2 spr Hydrochlorothiazide (Hydrodiuril) 25 mg PO DAILY [facility] Last Admin: 10/21/17 09:16 Dose: 25 mg Sodium Chloride (Sodium Chloride 0.9%) 1,000 mls @ 75 mls/hr IV .[id number] [facility] Stop: 10/21/17 10:02 Last Admin: 10/20/17 23:35 Dose: Not Given Ciprofloxacin (Cipro 200mg/100ml D5w) 100 mls @ 100 mls/hr IVPB Q12 [facility] Last Admin: 10/21/17 09:00 Dose: 100 mls/hr Insulin Detemir (Levemir) 25 units SC DAILY [facility] Last Admin: 10/21/17 09:16 Dose: 25 unit Insulin Human Regular (Humulin R) 0 units SC ACCU-CHECK [facility] PRN Reason: Protocol Last Admin: 10/21/17 06:13 Dose: Not Given Lisinopril (Zestril) 20 mg PO DAILY [facility] Last Admin: 10/21/17 09:17 Dose: 20 mg Loratadine (Claritin) 10 mg PO DAILY [facility] Last Admin: 10/21/17 09:15 Dose: 10 mg Metoprolol Tartrate (Lopressor) 100 mg PO BID [facility] Last Admin: 10/21/17 09:17 Dose: 100 mg - Labs Labs: 10/20/17 04:25 10/20/17 04:25 PT 14.1 Seconds (9.8-13.1) H 10/15/17 17:20 INR 1.3 (0.9-1.2) H 10/15/17 17:20 APTT 29.8 Seconds (25.6-37.1) 10/15/17 17:20
--- NOTE | 2017-10-21 11:09 | CP.PCM.PN ---
Subjective - Date & Time of Evaluation Date of Evaluation: 10/21/17 Time of Evaluation: 11:08 - Subjective Subjective: pt is seen and examined, follow up consult is dictated #[id number] stable renal function c/w cipro 250 mg po bid x 5 days after d/c home Objective - Vital Signs/Intake and Output Vital Signs (last 24 hours): Temp Pulse Resp BP Pulse Ox 99.0 F 71 18 124/73 96 10/21/17 07:55 10/21/17 09:17 10/21/17 07:55 10/21/17 09:17 10/21/17 07:55 - Medications Medications: Current Medications Albuterol (Ventolin Hfa 90 Mcg/Actuation (8 G)) 2 puff INH Q6 PRN PRN Reason: Shortness of Breath Amlodipine Besylate (Norvasc) 5 mg PO DAILY [facility] Last Admin: 10/21/17 09:16 Dose: 5 mg Aspirin (Aspirin Chewable) 81 mg PO DAILY [facility] Last Admin: 10/21/17 09:15 Dose: 81 mg Atorvastatin Calcium (Lipitor) 40 mg PO DAILY [facility] Last Admin: 10/21/17 09:17 Dose: 40 mg Clotrimazole (Lotrimin 1% Cream) 1 applic TOP BID [facility] Last Admin: 10/21/17 09:17 Dose: 1 applic Enoxaparin Sodium (Lovenox) 30 mg SC DAILY [facility] PRN Reason: Protocol Last Admin: 10/21/17 09:16 Dose: 30 mg Fenofibrate (Tricor) 48 mg PO HS [facility] Last Admin: 10/20/17 21:37 Dose: 48 mg Fluticasone Propionate (Flonase) 2 spr JULISSA DAILY [facility] Last Admin: 10/21/17 09:15 Dose: 2 spr Hydrochlorothiazide (Hydrodiuril) 25 mg PO DAILY [facility] Last Admin: 10/21/17 09:16 Dose: 25 mg Ciprofloxacin (Cipro 200mg/100ml D5w) 100 mls @ 100 mls/hr IVPB Q12 [facility] Last Admin: 10/21/17 09:00 Dose: 100 mls/hr Insulin Detemir (Levemir) 25 units SC DAILY [facility] Last Admin: 10/21/17 09:16 Dose: 25 unit Insulin Human Regular (Humulin R) 0 units SC ACCU-CHECK [facility] PRN Reason: Protocol Last Admin: 10/21/17 06:13 Dose: Not Given Lisinopril (Zestril) 20 mg PO DAILY [facility] Last Admin: 10/21/17 09:17 Dose: 20 mg Loratadine (Claritin) 10 mg PO DAILY [facility] Last Admin: 10/21/17 09:15 Dose: 10 mg Metoprolol Tartrate (Lopressor) 100 mg PO BID [facility] Last Admin: 10/21/17 09:17 Dose: 100 mg - Labs Labs: 10/20/17 04:25 10/20/17 04:25 PT 14.1 Seconds (9.8-13.1) H 10/15/17 17:20 INR 1.3 (0.9-1.2) H 10/15/17 17:20 APTT 29.8 Seconds (25.6-37.1) 10/15/17 17:20
[2017-10-21 11:36] LABS: FSH 8.5 mIU/mL
--- NOTE | 2017-10-21 18:26 | CP.PCM.DIS ---
Provider - Provider Date of Admission: 10/16/17 10:53 Attending physician: Jewel Knapp MD Primary care physician: Mela Narvaez Consults: Dr. Savage-neurology; Dr. Castaneda- nephrology; Dr. Murcia- cardiology; Dr. Hsu-neurosurgery Time Spent in preparation of Discharge (in minutes): 30 Diagnosis - Discharge Diagnosis (1) Dizziness Status: Resolved Priority: Low (2) Mass in region of sella turcica present on magnetic resonance imaging Status: Acute Priority: Low (3) Vertigo Status: Chronic Priority: Low Hospital Course - Lab Results Lab Results: Micro Results 10/18/17 17:39 Urine Urine Culture - Final Klebsiella Pneumoniae Ssp Pneu Most Recent Lab Values WBC 8.1 K/uL (4.8-10.8) 10/20/17 04:25 RBC 3.55 Mil/uL (3.80-5.20) L 10/20/17 04:25 Hgb 9.7 g/dL (12.0-16.0) L 10/20/17 04:25 Hct 28.8 % (34.0-47.0) L 10/20/17 04:25 MCV 80.9 fl (81.0-99.0) L 10/20/17 04:25 MCH 27.3 pg (27.0-31.0) 10/20/17 04:25 MCHC 33.7 g/dL (33.0-37.0) 10/20/17 04:25 RDW 13.5 % (11.5-14.5) 10/20/17 04:25 Plt Count 312 K/uL (130-400) 10/20/17 04:25 MPV 9.2 fl (7.2-11.7) 10/15/17 17:20 Neut % (Auto) 75.6 % (50.0-75.0) H 10/15/17 17:20 Lymph % (Auto) 12.4 % (20.0-40.0) L 10/15/17 17:20 [place] % (Auto) 10.3 % (0.0-10.0) H 10/15/17 17:20 Eos % (Auto) 0.8 % (0.0-4.0) 10/15/17 17:20 Baso % (Auto) 0.9 % (0.0-2.0) 10/15/17 17:20 Neut # 8.5 K/uL (1.8-7.0) H 10/15/17 17:20 Lymph # 1.4 K/uL (1.0-4.3) 10/15/17 17:20 [place] # 1.2 K/uL (0.0-0.8) H 10/15/17 17:20 Eos # 0.1 K/uL (0.0-0.7) 10/15/17 17:20 Baso # 0.1 K/uL (0.0-0.2) 10/15/17 17:20 ESR 33 mm/hr (0-30) H 10/17/17 10:33 PT 14.1 Seconds (9.8-13.1) H 10/15/17 17:20 INR 1.3 (0.9-1.2) H 10/15/17 17:20 APTT 29.8 Seconds (25.6-37.1) 10/15/17 17:20 Hexagonal Phase Confirm Negative (Negative) 10/17/17 10:50 Sodium 144 mmol/l (132-148) 10/20/17 04:25 Potassium 3.3 MMOL/L (3.6-5.0) L 10/20/17 04:25 Chloride 105 mmol/L (98-107) 10/20/17 04:25 Carbon Dioxide 28 mmol/L (22-30) 10/20/17 04:25 Anion Gap 14 (10-20) 10/20/17 04:25 BUN 32 mg/dl (7-17) H 10/20/17 04:25 Creatinine 2.3 mg/dl (0.7-1.2) H 10/20/17 04:25 Est GFR ( Amer) 26 10/20/17 04:25 Est GFR (Non-Af Amer) 21 10/20/17 04:25 POC Glucose (mg/dL) 189 mg/dL (65-110) H 10/21/17 10:31 Random Glucose 78 mg/dL (65-105) 10/20/17 04:25 Hemoglobin A1c 7.9 % (4.2-6.5) H 10/17/17 04:30 Calcium 10.1 mg/dL (8.4-10.2) 10/20/17 04:25 Total Bilirubin 0.3 mg/dl (0.2-1.3) 10/20/17 04:25 AST 29 U/L (14-36) 10/20/17 04:25 ALT 47 U/L (9-52) 10/20/17 04:25 Alkaline Phosphatase 76 U/L (38-126) 10/20/17 04:25 Troponin I < 0.0120 ng/mL (0.00-0.120) 10/15/17 17:20 C-React Prot High Sens > 15.00 mg/L (1.00-3.00) H 10/17/17 10:50 NT-Pro-B Natriuret Pep 193 pg/ml (0-900) 10/15/17 17:20 Total Protein 7.0 G/DL (6.3-8.2) 10/20/17 04:25 Albumin 3.6 g/dL (3.5-5.0) 10/20/17 04:25 Globulin 3.4 gm/dL (2.2-3.9) 10/20/17 04:25 Albumin/Globulin Ratio 1.1 (1.0-2.1) 10/20/17 04:25 Triglycerides 150 mg/DL (0-149) H 10/16/17 05:00 Cholesterol 139 mg/dL (0-199) 10/16/17 05:00 LDL Cholesterol Direct 69 mg/dL (0-129) 10/16/17 05:00 HDL Cholesterol 30 MG/DL (30-70) 10/16/17 05:00 Vitamin B12 270 pg/mL (239-931) 10/17/17 10:04 25-OH Vitamin D Total 17.0 NG/ML (30.0-100.0) L 10/17/17 10:50 Homocysteine 27.6 umol/L ( <10.4) H 10/17/17 10:50 Thyroxine (T4) 6.19 ug/dl (5.5-11.0) 10/18/17 09:50 Total T3 0.615 nmol/L (1.49-2.60) L 10/17/17 10:04 TSH 3rd Generation 1.97 mIU/ML (0.46-4.68) 10/21/17 10:35 FSH 3rd Generation 8.5 mIU/mL 10/21/17 10:35 Luteinizing Hormone 1.2 mIU/ml 10/21/17 10:35 Human Growth Hormone 0.1 ng/mL (<or=7.1) 10/17/17 10:31 Urine Color Yellow (YELLOW) 10/18/17 07:00 Urine Clarity Slighty-cloudy (Clear) 10/18/17 07:00 Urine pH 6.0 (5.0-8.0) 10/18/17 07:00 Ur Specific [place] Range 1.011 (1.003-1.030) 10/18/17 07:00 Urine Protein Negative mg/dL (NEGATIVE) 10/18/17 07:00 Urine Glucose (UA) Neg mg/dL (Normal) 10/18/17 07:00 Urine Ketones Negative mg/dL (NEGATIVE) 10/18/17 07:00 Urine Blood Negative (NEGATIVE) 10/18/17 07:00 Urine Nitrate Negative (NEGATIVE) 10/18/17 07:00 Urine Bilirubin Negative (NEGATIVE) 10/18/17 07:00 Urine Urobilinogen 0.2-1.0 mg/dL (0.2-1.0) 10/18/17 07:00 Ur Leukocyte Esterase Mod Leonel/uL (Negative) 10/18/17 07:00 Urine RBC (Auto) 2 /hpf (0-3) 10/18/17 07:00 Urine Microscopic WBC 16 /hpf (0-5) H 10/18/17 07:00 Urine Bacteria Rare (<OCC) 10/18/17 07:00 Urine Eosinophils Negative (NEGATIVE) 10/19/17 17:44 Urine Collection Time 2145 HRS 10/18/17 23:18 Urine Total Volume 1500 mL 10/18/17 23:18 Ur Creatinine 24 Hour 1222.5 mg/24hr (800-2800) 10/18/17 21:58 Creatinine Clearance 1.0 mL/min (87-107) L 10/18/17 23:16 Ur Protein 24 Hr Calc 180.0 mg/24hr (42-225) 10/18/17 23:18 YESSENIA Screen Negative (Negative) 10/17/17 13:20 Complement C3 141.0 mg/dL (88.0-165.0) 10/17/17 13:20 Complement C4 37.9 mg/dL (14.0-44.0) 10/17/17 13:20 Hep Bs Antigen Negative (NEGATIVE) 10/17/17 13:20 Hep Bs Antibody Negative (NEGATIVE) 10/17/17 13:20 Hepatitis C Antibody Negative (NEGATIVE) 10/17/17 13:20 Influenza Typ A,B (EIA) Negative for flu a/b (NEGATIVE) 10/15/17 17:20 Prothrombin Mut Interp see note 10/17/17 10:50 Prothrombin Gene Mutate see note 10/17/17 10:50 Prothromb Gene Review see note 10/17/17 10:50 - Hospital Course Hospital Course: 62 yr old F admitted for severe vertigo with symptoms of recurrent dizziness and nonbilious vomiting, was found to have a UTI, improved s/p treatment with IV antibiotics, meclizine, IV fluids. Patient was evaluated by neurosurgery for an incidental finding of a macroadenoma and will follow up as outpatient. Patient was discharged stable with instructions to take PO antibiotics as prescribed, follow up with her PMD and neurosurgery within 1 week. - Date & Time of H&P Date of H&P: 10/16/17 Time of H&P: 12:32 Discharge Exam - Head Exam Head Exam: ATRAUMATIC ([id number]), NORMOCEPHALIC - Eye Exam Eye Exam: EOMI, PERRL - ENT Exam ENT Exam: Mucous Membranes Moist - Neck Exam Neck exam: Full Rom - Respiratory Exam Respiratory Exam: Clear to PA & Lateral, NORMAL BREATHING PATTERN - Cardiovascular Exam Cardiovascular Exam: REGULAR RHYTHM, +S1, +S2 - GI/Abdominal Exam GI & Abdominal Exam: Normal Bowel Sounds, Soft - Extremities Exam Extremities exam: full ROM - Neurological Exam Neurological exam: Alert, CN II-XII Intact, Normal Gait, Oriented x3 - Psychiatric Exam Psychiatric exam: Normal Affect, Normal Mood - Skin Skin Exam: Dry, Normal Color, Warm Discharge Plan - Discharge Medications Prescriptions: Ciprofloxacin HCl [Cipro] 250 mg PO BID #10 tablet - Follow Up Plan Condition: FAIR Disposition: HOME/ ROUTINE Instructions: Dizziness (GEN), Impaired Kidney Function (DC) Additional Instructions: Follow up with Dr hsu outpatient [phone] for possible outpatient surgery Follow up with in 1 week. Clinical Quality Measures - Date & Time of Discharge Summary Date of Discharge Summary: 10/21/17 Time of Discharge Summary: 18:38
[2017-10-21 21:09] LABS: PROLACTIN 94.3 ng/mL (3.0-18.9)
--- NOTE | 2017-10-22 03:13 | PN ---
FOLLOWUP RENAL CONSULTATION DATE: LOCATION: The patient is located in the telemetry room 406, bed 2. REQUESTED BY: Jewel Knapp MD REASON FOR FOLLOWUP: Chronic kidney disease, ongoing UTI for further evaluation. HISTORY OF PRESENT ILLNESS: Mrs. Aguilar is a 62-year-old elderly female with a past medical history significant for longstanding hypertension, diabetes, renal failure who was admitted with the chief complaint of feeling dizzy, lightheadedness, and found to have increased BUN and creatinine and also right pituitary mass. The patient was also found to have urine culture positive for Klebsiella pneumoniae. The patient was started on Cipro IV last night. The patient is feeling much better, not in any acute distress. Denies any headache. Denies any chest pain,palpitation. Denies any fever, cough. No tremors. The patient is off Neurontin. PHYSICAL EXAMINATION: GENERAL: Mrs. Aguilar is a 62-year-old elderly female moderately built, moderately nourished, not in any acute distress. VITAL SIGNS: This morning as follows; blood pressure 124/73, pulse 71, respirations 18, temperature 99, saturation 96%, height 5 feet 4 inches, weight is 160 pounds, BMI 27.5. HEENT: Pupils normal, reactive to light and accommodation. Conjunctivae pink. Sclerae anicteric. Tongue is moist. Trachea is midline. LUNGS: Symmetric on both sides. Bilateral breath sounds are present. Clear on auscultation. CARDIOVASCULAR SYSTEM: [place] at the fifth intercostal space, midclavicular line. S1 and S2 audible. No murmur or gallop. ABDOMEN: Normal in appearance, soft, tympanic. No guarding. No rigidity. No hepatosplenomegaly. CENTRAL NERVOUS SYSTEM: The patient is alert, awake, oriented x3, nonfocal. NEUROLOGIC: Cranial nerves II through XII grossly intact. Sensory and motor system is within normal limits. EXTREMITIES: No cyanosis, no clubbing, no edema. CURRENT MEDICATIONS: Include as follows: Lotrimin cream topical b.i.d., albuterol inhaler 2 puffs q. 6 hours, Flovent 2 sprays daily, Claritin 10 mg p.o. daily, Lopressor 100 mg p.o. b.i.d., amlodipine 5 mg p.o. daily, lisinopril/hydrochlorothiazide one tablet daily, fenofibrate 54 mg p.o. at bedtime, atorvastatin 40 mg p.o. daily, aspirin 81 mg daily, glimepiride 2 mg p.o. b.i.d., and Cipro 250 mg p.o. b.i.d., changing IV Cipro to p.o. Cipro. LABORATORY DATA: Accu-Cheks 112 and 189, TSH is 1.97, FSH is 8.5, LH is 1.2, prolactin is 94.3, and serum cortisol level is 3.8. Urine culture report is positive for more than 100,000 gram-negative rods identified as Klebsiella pneumonia. ASSESSMENT AND PLAN: In summary, Mrs. Aguilar is a 62-year-old elderly female with a history of hypertension, diabetes with right-sided pituitary mass and renal failure. Urine culture positive for Klebsiella pneumonia more than 100,000 colony-forming units. 1. Chronic kidney disease, etiology is not clear, all the workup is within normal limits. 2. Rule out hypertensive nephrosclerosis versus diabetic nephropathy. 3. Urinary tract infection. Continue Cipro 250 mg p.o. b.i.d. We would switch intravenous Cipro to p.o. Cipro, and we will continue 250 mg p.o. b.i.d. for another five days. 4. Hypertension, blood pressure is stable. 5. Diabetes, sugars are under control. 6. Right-sided pituitary mass, rule out prolactinoma and rule out adrenal insufficiency with low serum cortisol. Follow up with Endocrinology as an outpatient. Follow up with Neurosurgery for further management. The patient can be followed as an outpatient in the office in one month. Thank you for allowing me to participate in your patient's care. Alicia Castaneda MD
== END 2017-10-21 14:34 | disposition home health service (06) | DRG 65 ==
LOC: H.ER 16:01 → H.ERHOLD 19:08 → H.TEL 20:57 → OBSVTOIN 10-16 10:53
PROVIDERS: ADMIT Internal Medicine; ATTEND Internal Medicine
PROC: 3E0234Z Introduction of Serum, Toxoid and Vaccine into Muscle, Percutaneous Approach (ICD-10-PCS; principal; 2017-10-16)
DX: H81.10 Benign paroxysmal vertigo, unspecified ear (principal); E11.22 Type 2 diabetes mellitus with diabetic chronic kidney disease; N18.3 Chronic kidney disease, stage 3 (moderate); N39.0 Urinary tract infection, site not specified; B96.1 Klebsiella pneumoniae [K. pneumoniae] as the cause of diseases classified elsewhere; I12.9 Hypertensive chronic kidney disease with stage 1 through stage 4 chronic kidney disease, or unspecified chronic kidney disease; I25.10 Atherosclerotic heart disease of native coronary artery without angina pectoris; D63.1 Anemia in chronic kidney disease; E78.5 Hyperlipidemia, unspecified; E34.8 Other specified endocrine disorders; J45.909 Unspecified asthma, uncomplicated; Z23 Encounter for immunization; Z79.4 Long term (current) use of insulin; Z79.82 Long term (current) use of aspirin

== ENCOUNTER 2018-01-31 15:39 | Emergency (ER) | payer MEDICAID ==
[2018-01-31 16:02] VITALS: BP 110/73; PULSE 100; RESP 18; TEMP 98.8; O2SAT 100
--- NOTE | 2018-01-31 16:54 | ED PDOC ---
Lower Extremity Pain/Injury Time Seen by Provider: 01/31/18 16:04 Chief Complaint (Nursing): Lower Extremity Problem/Injury Chief Complaint (Provider): Lower Extremity Problem History Per: Patient History/Exam Limitations: no limitations Onset/Duration Of Symptoms: Hrs Current Symptoms Are (Timing): Still Present Additional Complaint(s): Ellie Aguilar is a 63 year old female with a past medical history of hypertension, diabetes, hypercholesterolemia, and asthma who is presenting to the ER with complaints of left heel pain, onset this morning. patient states that she woke up this morning and when she tried to bear weight on her left leg , she felt immediate pain to left heel. She reports that she is an avid walker and walks about 1-2 hours a day. Patient denies any trauma, rash, numbness, or tingling. PMD: none provided Past Medical History Reviewed: Historical Data, Nursing Documentation, Vital Signs Vital Signs: Last Vital Signs Temp 98.8 F 01/31/18 16:00 Pulse 100 H 01/31/18 16:00 Resp 18 01/31/18 16:00 BP 110/73 01/31/18 16:00 Pulse Ox 100 01/31/18 16:00 - Medical History PMH: Asthma, HTN, Hypercholesterolemia - Surgical History Surgical History: - Family History Family History: States: Unknown Family Hx - Home Medications Home Medications: Ambulatory Orders Medication Instructions Recorded Albuterol HFA [Ventolin HFA 90 2 spray INH Q6 PRN 10/15/17 mcg/actuation (8 g)] Aspirin [Aspirin Chewable] 81 mg PO DAILY 10/15/17 Atorvastatin Calcium 40 mg PO DAILY 10/15/17 Clotrimazole 1% Cream [Lotrimin 1%] 1 applic TOP BID 10/15/17 Fenofibrate [Tricor] 54 mg PO HS 10/15/17 Fluticasone Propionate [Flovent 2 sprays JULISSA DAILY 10/15/17 Diskus] Glimepiride [amaRYL] 2 mg PO BID 10/15/17 Insulin Glargine,Hum.rec.anlog 25 units SC DAILY 10/15/17 [Basaglar Kwikpen U-100] Lisinopril/Hydrochlorothiazide 1 tab PO DAILY 10/15/17 [Lisinopril-Hctz 20-25 mg Tab] Loratadine [Claritin] 10 mg PO DAILY 10/15/17 Metoprolol Tartrate [Lopressor] 100 mg PO BID 10/15/17 amLODIPine [Norvasc] 5 mg PO DAILY 10/15/17 Ciprofloxacin HCl [Cipro] 250 mg PO BID #10 tablet 10/21/17 Meloxicam [Mobic] 7.5 mg PO DAILY PRN #20 tab 01/31/18 - Allergies Allergies/Adverse Reactions: Allergies Allergy/AdvReac Type Severity Reaction Status Date / Time No Known Allergies Allergy Verified 10/15/17 16:10 Review of Systems ROS Statement: Except As Marked, All Systems Reviewed And Found Negative Constitutional: Negative for: Other (trauma) Musculoskeletal: Positive for: Foot Pain (left heel) Skin: Negative for: Rash Neurological: Negative for: Numbness, Other (tingling) Physical Exam - Reviewed Nursing Documentation Reviewed: Yes Vital Signs Reviewed: Yes - Physical Exam Appears: Positive for: Non-toxic, No Acute Distress Head Exam: Positive for: ATRAUMATIC, NORMAL INSPECTION, NORMOCEPHALIC Skin: Positive for: Normal Color Pulses-Dorsalis Pedis (L): 2+ Pulses-Dorsalis Pedis (R): 2+ Extremity: Positive for: Tenderness (left foot: tenderness to left plantar surface of the heel), Capillary Refill (normal, less than 2 seconds). Negative for: Calf Tenderness, Deformity, Swelling Neurologic/Psych: Positive for: Alert, Oriented. Negative for: Motor/Sensory Deficits - ECG O2 Sat by Pulse Oximetry: 100 (RA) Pulse Ox Interpretation: Normal - Radiology X-Ray: Interpreted by De (L foot x-ray) X-Ray Interpretation: Other (calcaneal spur) Medical Decision Making Medical Decision Making: Time: 16:09 Plan: --Toradol 30 mg IM --X-Ray Left Foot Upon provider reevaluation patient is medically stable, and requires no further treatment in the ED at this time. Patient will be discharged. Counseling was provided and all questions were answered regarding diagnosis and need for follow up with podiatry. There is agreement to discharge plan. Return if symptoms persist or worsen. Advised to f/u with her service desk director, Dr. Breaux Scribe Attestation: Documented by Aurora Rosenberg, acting as a scribe for Alonso Merida PA-C. Provider Scribe Attestation: All medical record entries made by the Scribe were at my direction and personally dictated by me. I have reviewed the chart and agree that the record accurately reflects my personal performance of the history, physical exam, medical decision making, and the department course for this patient. I have also personally directed, reviewed, and agree with the discharge instructions and disposition. Disposition - Clinical Impression Clinical Impression: Heel spur - Patient ED Disposition Is Patient to be Admitted: No - Disposition Disposition: Routine/Home Disposition Time: 16:52 Condition: STABLE Prescriptions: Meloxicam [Mobic] 7.5 mg PO DAILY PRN #20 tab PRN Reason: Pain, Mild (1-3) Instructions: Heel Spurs (DC) Forms: [employer] (Slovenian) Print Language: NORWEGIAN
--- NOTE | 2018-01-31 17:03 | RAD ---
PROCEDURE: Left Foot Radiographs. HISTORY: pain COMPARISON: None. FINDINGS: BONES: No acute fracture. JOINTS: Unremarkable. SOFT TISSUES: Normal. OTHER FINDINGS: Small Achilles enthesophyte. Inferior plantar calcaneal spur. IMPRESSION: No demonstrated fracture or dislocation.
== END 2018-01-31 16:52 | disposition home or self-care (01) ==
LOC: H.ER 15:39
DX: M77.32 Calcaneal spur, left foot (principal); E78.00 Pure hypercholesterolemia, unspecified; I10 Essential (primary) hypertension; J45.909 Unspecified asthma, uncomplicated; Z79.4 Long term (current) use of insulin; Z79.82 Long term (current) use of aspirin
CPT/HCPCS: 73630; 96372; 99283; J1885